=== PATIENT | male | born 1990 | race Caucasian/White ===

== ENCOUNTER 2022-06-20 20:29 | Emergency (ER) | payer SELFPAY ==
[~2022-06-20] VITALS: Ht 177 cm; Wt 95.0 kg
[2022-06-20 20:49] VITALS: BP 141/84
--- NOTE | 2022-06-20 20:57 | ED Upper Extremity ---
General Chief Complaint: Upper Extremity Stated Complaint: LEFT HAND INJURY Source: patient History of Present Illness Date Seen by Provider: Jun 20, 2022 Time Seen by Provider: 20:50 Initial Comments PT ARRIVES VIA POV FROM HOME STATES 35-40 MINUTES AGO, HE HIT HIS LEFT HAND WITH A HAMMER C/O PAIN TO DORSAL ASPECT OF LEFT HAND, OVER SECOND METACARPAL AREA NO PARESTHESIAS OR MOTOR DEFICITS NO OTHER INJURIES FROM THE INCIDENT PT IS RIGHT HANDED PT HAS HAD PRIOR BILATERAL BOXER'S FRACTURES OF 5TH METHCARPALS IN THE PAST--NO SURGERIES. 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 HAS NOT TAKEN ANYTHING FOR PAIN PCP: NONE Allergies and Home Medications Allergies Coded Allergies: No Known Drug Allergies (Unverified , 06/23/22) Patient Home Medication List Home Medication List Reviewed: Yes Escitalopram Oxalate (Escitalopram Oxalate) 10 Mg Tablet, 10 MG PO DAILY, (Reported) Entered as Reported by: CORBY KELLEY on 06/24/22 0951 Hyoscyamine Sulfate (Levsin-Sl) 0.125 Mg Tab.subl, 0.125 MG SL Q4H Prescribed by: AKANKSHA MERIDA on 06/25/22 1219 Lorazepam (Ativan) 0.5 Mg Tablet, 0.5 MG PO TID PRN for ANXIETY Prescribed by: VANESSA VALDES on 06/24/22 1152 Lorazepam (Ativan) 0.5 Mg Tablet, 0.5 MG PO Q6H PRN for ANXIETY Prescribed by: AKANKSHA MERIDA on 06/25/22 1219 Multivitamin (Multivitamin) 1 Each Tablet, 1 EACH PO DAILY Prescribed by: VANESSA VALDES on 06/24/22 1153 Oxycodone Hcl (Oxyir Tablet) 5 Mg Tab, 5 MG PO TID Prescribed by: VANESSA VALDES on 06/24/22 1152 Pantoprazole Sodium (Protonix) 40 Mg Tablet.dr, 40 MG PO BID Prescribed by: VANESSA VALDES on 06/24/22 115 Sucralfate (Carafate) 1 Gram Tablet, 1 GM PO Q6H Prescribed by: AKANKSHA MERIDA on 06/25/22 1219 Thiamine HCl (Vitamin B-1) 100 Mg Tablet, 100 MG PO DAILY Prescribed by: VANESSA VALDES on 06/24/22 1153 Discontinued Medications Acetaminophen (Tylenol Extra Strength) 500 Mg Tablet, 1,000-1,500 MG PO Q8H PRN for PAIN-MILD (1-4), (Reported) Entered as Reported by: CORBY KELLEY on 06/24/22950 Clonazepam (Clonazepam) 0.5 Mg Tablet, 0.5 MG PO DAILY PRN for ANXIETY, (Reported) Entered as Reported by: CORBY KELLEY on 06/24/22950 Ibuprofen (Ibuprofen) 200 Mg Tablet, 800 MG PO Q8H PRN for PAIN-MILD (1-4), (Reported) Entered as Reported by: CORBY KELLEY on 06/24/22950 Review of Systems Constitutional: no symptoms reported Musculoskeletal: see HPI Skin: no symptoms reported Psychiatric/Neurological: No Symptoms Reported Past Rxcgtyn-Gvrwbl-Advzfz Hx Patient Social History Tobacco Use?: Yes Tobacco type used: Cigarettes Smoking Status: Current Everyday Smoker Smokeless Tobacco Frequency: Current Everyday User Substance use?: No Alcohol Use?: Yes Past Medical History Surgeries: No Respiratory: No Cardiac: No Neurological: No Genitourinary: No Gastrointestinal: No Musculoskeletal: Yes (BILAT 5TH METACARPAL FRACTURES-NO SURGERY) Fractures Endocrine: No HEENT: No Cancer: No Psychosocial: No Integumentary: No Blood Disorders: No Physical Exam Vital Signs Capillary Refill : Height, Weight, BMI Height: '" Weight: lbs. oz. kg; BMI Method: General Appearance: WD/WN, no apparent distress, other (REEKS OF CIGARETTES) Elbow/Forearm: normal inspection Wrist: Yes normal inspection Hand: Left (DORSAL ASPECT OF LEFT HAND OVER SECOND METACARPAL AREA, WITH TENDERNESS AND SLIGHT SWELLING. LIMITED ROM DUE TO PAIN, DISTAL MOTOR/SENSORY/VASCULAR INTACT. 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 RISKS/BENEFITS DISCUSSED Diagnostic Imaging Comments XRAYS LEFT HAND--PER RADIOLOGIST REPORT AT Reviewed: Reviewed by Me Departure Impression Primary Impression: Left against medical advice Disposition: 07 AGAINST MEDICAL ADVICE Condition: Against Medical Advice Departure-Patient Inst. Referrals: NO,LOCAL PHYSICIAN (PCP/Family) Primary Care Physician HORTENSIA RODRIGUEZ DO Jun 20, 2022 20:57
--- NOTE | 2022-06-20 21:44 | Diagnostic Imaging Report ---
CLINICAL INDICATION: Patient was building a cage for a pet snake and hit his hand with a hammer. EXAM: X-ray of the left hand, 3 views. COMPARISON: None. FINDINGS AND IMPRESSION: 1: There is a chronic appearing mid scaphoid bone fracture with sclerosis in the region. 2: There is no acute fracture or dislocation seen on this exam. 3: There is soft tissue swelling involving the 2nd digit but no gross fracture seen. 4: The remainder of this exam is unremarkable. Dictated by: Dictated on workstation # [id number]
[2022-06-24] MEDS ORDERED: PANT40TA2 PO (11:52)
[2022-06-24] MEDS ORDERED: OXC5T PO (11:52)
[2022-06-24] MEDS ORDERED: LORA-404 PO (11:52)
[2022-06-24] MEDS ORDERED: MULT-1136 PO (11:53)
[2022-06-24] MEDS ORDERED: THIA100T80 PO (11:53)
== END 2022-06-20 21:23 | disposition left against medical advice (07) ==
LOC: ER 20:32
DX: M79.642 Pain in left hand (principal); M79.89 Other specified soft tissue disorders; F17.210 Nicotine dependence, cigarettes, uncomplicated; W27.8XXA Contact with other nonpowered hand tool, initial encounter
CPT/HCPCS: 73130

== ENCOUNTER 2022-06-23 17:41 | Observation (INO) | payer SELFPAY ==
[~2022-06-23] VITALS: Ht 177.8 cm; Wt 96.4 kg
[2022-06-23] MEDS ORDERED: ONDANSETRON 4 MG/2 ML (SDV) Z0FRAN IVP ONE (18:30)
[2022-06-23] MEDS ORDERED: PANTOPRAZOLE 40 MG (PROTONIX) VIAL IV ONE (18:30)
[2022-06-23 18:38] LABS: BASOPHILS # (AUTO) 0.1 10^3/uL (0.0-0.1); BASOPHILS % (AUTO) 1 % (0-10); EOSINOPHILS # (AUTO) 0.3 10^3/uL (0.0-0.3); EOSINOPHILS % (AUTO) 4 % (0-10); HEMATOCRIT 49 % (40-54); HEMOGLOBIN 16.8 g/dL (13.3-17.7); LYMPHOCYTES # (AUTO) 2.7 10^3/uL (1.0-4.0); LYMPHOCYTES % (AUTO) 34 % (12-44); MEAN CORPUSCULAR HEMOGLOBIN 31 pg (25-34); MEAN CORPUSCULAR HGB CONC 34 g/dL (32-36); MEAN CORPUSCULAR VOLUME 90 fL (80-99); MEAN PLATELET VOLUME 8.8 fL (9.0-12.2); MONOCYTES # (AUTO) 0.5 10^3/uL (0.0-1.0); MONOCYTES % (AUTO) 6 % (0-12); NEUTROPHILS # (AUTO) 4.3 10^3/uL (1.8-7.8); NEUTROPHILS % (AUTO) 54 % (42-75); PLATELET COUNT 303 10^3/uL (130-400); WHITE BLOOD COUNT 7.9 10^3/uL (4.3-11.0)
[2022-06-23] MEDS ORDERED: morphine INJ 10 MG/ML 1ML (SYR OR VIAL) IVP STA ×3 (18:42→21:34)
[2022-06-23 18:44] LABS: PROTHROMBIN TIME PATIENT 13.1 SEC (12.2-14.7)
[2022-06-23] MEDS ORDERED: LORazepam INJ 2 MG/ML (ATIVAN) VIAL IVP ONE (18:45)
[2022-06-23 18:53] LABS: ALBUMIN 4.4 GM/DL (3.2-4.5); BILIRUBIN,TOTAL 0.6 MG/DL (0.1-1.0); CREATININE SERUM 0.88 MG/DL (0.60-1.30); POTASSIUM 4.1 MMOL/L (3.6-5.0); TOTAL PROTEIN 7.6 GM/DL (6.4-8.2)
[2022-06-23] MEDS ORDERED: LORazepam 1 MG (ATIVAN) TAB BC ONE (19:15)
[2022-06-23] MEDS ORDERED: IOHEXOL 350 MG/ML 100 ML (OMNIPAQUE 350) VIAL IV ONE (19:15)
[2022-06-23] MEDS ORDERED: HOLD METFORMIN - RECEIVED CONTRAST 20 ML VIAL IV SCH (19:15)
[2022-06-23] MEDS ORDERED: NS 100 ML (IVPB) BAG IV ONE (19:15)
[2022-06-23] MEDS ORDERED: CATHETER FLUSH 10 ML SYR IV PRN (19:15)
--- NOTE | 2022-06-23 19:59 | Diagnostic Imaging Report ---
CLINICAL INDICATION: Patient with GI bleed. EXAM: Axial CT scan of the chest, abdomen and pelvis performed with Omnipaque IV contrast. Sagittal and coronal reformatted images were created. Auto Exposure Controls were utilized during the CT exam to meet ALARA standards for radiation dose reduction. COMPARISON: None. FINDINGS: CHEST CT: There is paraseptal emphysematous changes involving both lung apices. Otherwise, lungs are clear. There is no mediastinal or hilar lymphadenopathy. There is no axillary lymphadenopathy. Mediastinal structures are unremarkable. There is no pleural effusion. ABDOMEN/PELVIS CT: There is diffuse low-density seen throughout the liver. The liver measures 22 cm in craniocaudal dimension. There is no liver mass. There is some fatty sparing involving the gallbladder fossa region of the liver. The spleen, pancreas, gallbladder and adrenal glands are unremarkable. Both kidneys are unremarkable with no hydronephrosis, stone or mass. Bladder is decompressed but otherwise unremarkable. There is no intra-abdominal free air or free fluid. Appendix is unremarkable. The stomach is decompressed with wall thickening which is nonspecific. The colon and small bowel show no significant abnormality. There is no intestinal obstruction. There is no lymphadenopathy. Extra abdominal and extra pelvic soft tissue structures are unremarkable. Bones show no significant abnormality. IMPRESSION: 1: There is no CT evidence of acute chest, abdominal or pelvic process. 2: There is hepatomegaly and diffuse low-density seen throughout the liver which is most likely related to diffuse fatty infiltration. 3: There is no intestinal obstruction or significant intestinal abnormality seen on this exam. Dictated by: Dictated on workstation # [id number]
[2022-06-23] MEDS ORDERED: ANTACID SUSP 30 ML UDC (MYLANTA) PO ONE (21:15)
[2022-06-23] MEDS ORDERED: LIDOCAINE 2% VISCOUS 15 ML UDC PO ONE (21:15)
--- NOTE | 2022-06-23 21:43 | ED Abdominal Pain ---
General Chief Complaint: Abdominal/GI Problems Stated Complaint: VOMITING BLOOD Nursing Triage Note: PT AMB TO RM 7 W C/O VOMITING BLOOD AND BLOODY STOOLS FOR SEVERAL MONTHS. PT ALSO C/O NEW ONSET ABD PAIN AND CP SX 1700 TODAY. PT A&OX4, REPORTS HE DRINKS LIQUOR DAILY - LAST DRINK THIS AM. Source of Information: Patient Exam Limitations: No Limitations History of Present Illness Date Seen by Provider: Jun 23, 2022 Time Seen by Provider: 18:30 Initial Comments This 32-year-old gentleman presents to the emergency room with complaints of upper abdominal pain, hematemesis, and hematochezia over the past few days. He presented to his PCP at the [facility] clinic. Labs were performed and they reported elevated transaminases. He presents to the ER for further evaluation and treatment. His last alcohol consumption was a few shots of hard alcohol at 0600. He normally drinks about a pint of hard alcohol daily. He travels for work and has a fianc who is due to have a baby girl in about a week. Increased stress has increased his alcohol consumption, but he would like to get control of this problem as his baby should be born soon. He is open to doing outpatient treatment. He reports having endoscopy previously about 2 years ago. He states he has a history of "ulcers and tear of the esophagus". He does not remember exactly where the endoscopies were performed. They may have been performed in [place], [facility], or . His fiance shows me multiple pictures on the phone of numerous episodes of hematemesis and hematochezia. Vital signs are stable at this time. Patient is obviously uncomfortable. He is alert and oriented. Allergies and Home Medications Allergies Coded Allergies: No Known Drug Allergies (Unverified , 06/23/22) Patient Home Medication List Home Medication List Reviewed: Yes Review of Systems Review of Systems Constitutional: no symptoms reported EENTM: No Symptoms Reported Respiratory: No Symptoms Reported Cardiovascular: No Symptoms Reported Gastrointestinal: See HPI Genitourinary: No Symptoms Reported Musculoskeletal: no symptoms reported Skin: no symptoms reported Psychiatric/Neurological: See HPI Endocrine: No Symptoms Reported Hematologic/Lymphatic: No Symptoms Reported Past Cvgnuqd-Mxisyd-Iwmltb Hx Patient Social History Tobacco Use?: No Use of E-Cig and/or Vaping dev: Yes E-Cig or Vaping type used: Nicotine Use of E-Cig and/or Vaping Cezar: Current Everyday User Substance use?: No Alcohol Use?: Yes Alcohol type: Hard Liquor Alcohol Frequency: Daily Immunizations Up To Date First/Initial COVID19 Vaccinat: NONE Second COVID19 Vaccination James: NONE Third COVID19 Vaccination Date: NONE COVID19 Vaccine Oil Program Compliance Specialist: NONE Past Medical History Surgeries: Yes Abdominal (Upper and lower endoscopy), Orthopedic (Calcaneal fracture, hip to wrist bone graft) Respiratory: No Cardiac: No Neurological: No Genitourinary: No Gastrointestinal: Yes ("Tear of esophagus") Ulcer Musculoskeletal: Yes (BILAT 5TH METACARPAL FRACTURES-NO SURGERY) Fractures Endocrine: No HEENT: No Cancer: No Psychosocial: Yes Anxiety, Depression Integumentary: No Blood Disorders: No Physical Exam Vital Signs Vital Signs - First Documented 06/23/22 18:00 Temp 36.6 Pulse 84 Resp 20 B/P (MAP) 144/94 (111) Pulse Ox 97 O2 Delivery Room Air Capillary Refill : Less Than 3 Seconds Height/Weight/BMI Height: '" Weight: lbs. oz. 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, no motor/sensory deficits, alert, oriented x 3, other (Mildly anxious) Skin: normal color, warm/dry Progress/Results/Core Measures Results/Orders Lab Results Laboratory Tests Test 06/23/22 18:10 Range/Units White Blood Count 7.9 4.3-11.0 10^3/uL Red Blood Count 5.46 4.30-5.52 10^6/uL Hemoglobin 16.8 13.3-17.7 g/dL Hematocrit 49 40-54 % Mean Corpuscular Volume 90 80-99 fL Mean Corpuscular Hemoglobin 31 25-34 pg Mean Corpuscular Hemoglobin Concent 34 32-36 g/dL Red Cell Distribution Width 13.6 10.0-14.5 % Platelet Count 303 130-400 10^3/uL Mean Platelet Volume 8.8 L 9.0-12.2 fL Immature Granulocyte % (Auto) 0 % Neutrophils (%) (Auto) 54 42-75 % Lymphocytes (%) (Auto) 34 12-44 % Monocytes (%) (Auto) 6 0-12 % Eosinophils (%) (Auto) 4 0-10 % Basophils (%) (Auto) 1 0-10 % Neutrophils # (Auto) 4.3 1.8-7.8 10^3/uL Lymphocytes # (Auto) 2.7 1.0-4.0 10^3/uL Monocytes # (Auto) 0.5 0.0-1.0 10^3/uL Eosinophils # (Auto) 0.3 0.0-0.3 10^3/uL Basophils # (Auto) 0.1 0.0-0.1 10^3/uL Immature Granulocyte # (Auto) 0.0 0.0-0.1 10^3/uL Prothrombin Time 13.1 12.2-14.7 SEC INR Comment 1.0 0.8-1.4 Sodium Level 141 135-145 MMOL/L Potassium Level 4.1 3.6-5.0 MMOL/L Chloride Level 107 98-107 MMOL/L Carbon Dioxide Level 24 21-32 MMOL/L Anion Gap 10 5-14 MMOL/L Blood Urea Nitrogen 10 7-18 MG/DL Creatinine 0.88 0.60-1.30 MG/DL Estimat Glomerular Filtration Rate 118 BUN/Creatinine Ratio 11 Glucose Level 80 70-105 MG/DL Calcium Level 9.0 8.5-10.1 MG/DL Corrected Calcium 8.7 8.5-10.1 MG/DL Magnesium Level 2.0 1.6-2.4 MG/DL Total Bilirubin 0.6 0.1-1.0 MG/DL Aspartate Amino Transf (AST/SGOT) 64 H 5-34 U/L Alanine Aminotransferase (ALT/SGPT) 173 H 0-55 U/L Alkaline Phosphatase 88 40-136 U/L Total Protein 7.6 6.4-8.2 GM/DL Albumin 4.4 3.2-4.5 GM/DL Lipase 10 8-78 U/L Serum Alcohol 73 H <10 MG/DL My Orders Orders - PITER PITTMAN MD Pantoprazole Injection (Protonix Injecti (06/23/22 18:30) Ondansetron Injection (Zofran Injectio (06/23/22 18:30) Ed Iv/Invasive Line Start (06/23/22 18:31) Monitor-Rhythm Ecg Trace Only (06/23/22 18:31) Alcohol (06/23/22 18:31) Cbc With Automated Diff (06/23/22 18:31) Comprehensive Metabolic Panel (06/23/22 18:31) Lipase (06/23/22 18:31) Magnesium (06/23/22 18:31) Protime With Inr (06/23/22 18:31) Morphine Injection (Morphine Injection (06/23/22 18:42) Ct Chest/Abdomen/Pelvis W (06/23/22 19:01) Lorazepam Tablet (Ativan Tablet) (06/23/22 19:15) Iohexol Injection (Omnipaque 350 Mg/Ml 1 (06/23/22 19:15) Received Contrast (Hold Metformin- Contr (06/23/22 19:15) Ns (Ivpb) (Sodium Chloride 0.9% Ivpb Bag (06/23/22 19:15) Sodium Chloride Flush (Catheter Flush Sy (06/23/22 19:15) Morphine Injection (Morphine Injection (06/23/22 19:54) Lidocaine 2% Viscous 15 Ml (Xylocaine Vi (06/23/22 21:15) Antacid Suspension (Mylanta Suspension (06/23/22 21:15) Morphine Injection (Morphine Injection (06/23/22 21:34) Ed Admission (Communication) (06/23/22 21:43) Medications Given in ED Current Medications Medications Dose Ordered Sig/Hayes Route Start Time Stop Time Status Last Admin Dose Admin Al Hydrox/Mg Hydrox/Simethicone 30 ml ONCE ONCE PO 06/23/22 21:15 06/23/22 21:16 DC 06/23/22 21:08 30 ML Iohexol 100 ml ONCE ONCE IV 06/23/22 19:15 06/23/22 21:27 DC 06/23/22 19:39 80 ML Lidocaine HCl 15 ml ONCE ONCE PO 06/23/22 21:15 06/23/22 21:16 DC 06/23/22 21:08 15 ML Lorazepam 2 mg ONCE ONCE BC 06/23/22 19:15 06/23/22 19:16 DC 06/23/22 19:42 2 MG Ondansetron HCl 8 mg ONCE ONCE IVP 06/23/22 18:30 06/23/22 18:31 DC 06/23/22 19:09 8 MG Pantoprazole 80 mg ONCE ONCE IV 06/23/22 18:30 06/23/22 18:31 DC 06/23/22 19:09 80 MG Sodium Chloride 10 ml NEEDED PRN IV 06/23/22 19:15 06/23/22 19:37 10 ML Sodium Chloride 100 ml ONCE ONCE IV 06/23/22 19:15 06/23/22 21:27 DC 06/23/22 19:39 80 ML Vital Signs/I&O 06/23/22 18:00 Temp 36.6 Pulse 84 Resp 20 B/P (MAP) 144/94 (111) Pulse Ox 97 O2 Delivery Room Air Blood Pressure Mean: 111 Fecal Occult: Negative Progress Progress Note : Time: 21:52 Progress Note Work-up was relatively unremarkable. Patient was treated with fentanyl and morphine for pain. Pain did not improve much with IV treatments. GI cocktail was administered which also did not improve pain much. CT of the chest, abdomen and pelvis was obtained. Chest was included because of his history of esophageal injury by his report. No acute findings were revealed. Hepatomegaly was present, likely secondary to his alcohol dependence. Patient had no active bleeding in the ER. Stool specimen was Hemoccult negative. Patient is offered admission for pain control and social security benefits interviewer consult as well as establishment with a surgeon for endoscopy. Dr. Castillo is agreeable to admission. Dr. Graham was consulted and requested clear liquid diet and continued PPI. Protonix 80 mg IV was administered in the ER along with Zofran. Ativan 2 mg orally was administered. Diagnostic Imaging Diagonstic Imaging: CT Plain Films/CT/US/NM/MRI: chest, abdomen, pelvis Comments CT scan viewed by me and report reviewed. See report below: NAME: ELSY KINSE[facility] REC#: [id number] PT STATUS: REG ER : 1990 PHYSICIAN: PITER PITTMAN MD ADMIT DATE: 06/23/22/ER Draft Date of Exam:06/23/22 CT CHEST/ABDOMEN/PELVIS W CLINICAL INDICATION: Patient with GI bleed. EXAM: Axial CT scan of the chest, abdomen and pelvis performed with Omnipaque IV contrast. Sagittal and coronal reformatted images were created. Auto Exposure Controls were utilized during the CT exam to meet ALARA standards for radiation dose reduction. COMPARISON: None. FINDINGS: CHEST CT: There is paraseptal emphysematous changes involving both lung apices. Otherwise, lungs are clear. There is no mediastinal or hilar lymphadenopathy. There is no axillary lymphadenopathy. Mediastinal structures are unremarkable. There is no pleural effusion. ABDOMEN/PELVIS CT: There is diffuse low-density seen throughout the liver. The liver measures 22 cm in craniocaudal dimension. There is no liver mass. There is some fatty sparing involving the gallbladder fossa region of the liver. The spleen, pancreas, gallbladder and adrenal glands are unremarkable. Both kidneys are unremarkable with no hydronephrosis, stone or mass. Bladder is decompressed but otherwise unremarkable. There is no intra-abdominal free air or free fluid. Appendix is unremarkable. The stomach is decompressed with wall thickening which is nonspecific. The colon and small bowel show no significant abnormality. There is no intestinal obstruction. There is no lymphadenopathy. Extra abdominal and extra pelvic soft tissue structures are unremarkable. Bones show no significant abnormality. IMPRESSION: 1: There is no CT evidence of acute chest, abdominal or pelvic process. 2: There is hepatomegaly and diffuse low-density seen throughout the liver which is most likely related to diffuse fatty infiltration. 3: There is no intestinal obstruction or significant intestinal abnormality seen on this exam. Dictated on workstation # [id number] Dict: 06/23/221949 Trans: 06/23/221957 [facility] [id number] Interpreted by: SELMA SALINAS MD Departure Communication (Admissions) Time/Spoke to Admitting Phy: 21:40 Dr. Castillo Impression Primary Impression: Hematemesis Qualified Codes: K92.0 - Hematemesis Additional Impressions: Hematochezia Upper abdominal pain Alcohol dependence Qualified Codes: F10.288 - Alcohol dependence with other alcohol-induced disorder Disposition: ADMITTED INPATIENT Condition: Stable Admissions Decision to Admit Reason: Admit from ER (General) Decision to Admit/Date: Jun 23, 2022 Time/Decision to Admit Time: 21:40 Departure-Patient Inst. Referrals: NO,LOCAL PHYSICIAN (PCP/Family) Primary Care Physician Copy Copies To 1: [facility][1]/PITER FRAUSTO MD Jun 23, 2022 21:43
[2022-06-23] MEDS ORDERED: diphenhydrAMINE 50 MG/ML INJ (BENADRYL) IVP PRN (22:45)
[2022-06-23] MEDS ORDERED: ONDANSETRON 4 MG (ZOFRAN) ORAL DISSOLVE TAB SL PRN (22:45)
[2022-06-23] MEDS ORDERED: ACETAMINOPHEN 325 MG TABLET PO PRN (22:45)
[2022-06-23] MEDS ORDERED: diphenhydrAMINE 25 MG TAB (BENADRYL) PO PRN (22:45)
[2022-06-23] MEDS ORDERED: SENNA W/DOCUSATE (SENOKOT S) TABLET PO PRN (22:45)
[2022-06-23] MEDS ORDERED: polyethylene glycoL POWDER 17 GM (MIRALAX) PACK PO PRN (22:45)
[2022-06-23] MEDS ORDERED: BISACODYL 10 MG SUPP (DULCOLAX) PR PRN (22:45)
[2022-06-23] MEDS ORDERED: ONDANSETRON 4 MG (ZOFRAN) ORAL DISSOLVE TAB PO PRN (22:45)
[2022-06-23] MEDS ORDERED: D5 1/2 NS 1000 ML IV SOLUTION 1,000 ML IV PRN (22:45)
[2022-06-23] MEDS ORDERED: NS IV 500 ML 500 ML IV PRN (22:45)
[2022-06-23] MEDS ORDERED: 1/2 NS IV SOLUTION 1,000 ML IV PRN (22:45)
[2022-06-23] MEDS ORDERED: MELATONIN 3 MG TABLET PO PRN (22:45)
[2022-06-23] MEDS ORDERED: ONDANSETRON 4 MG/2 ML (SDV) Z0FRAN IV PRN ×2 (22:45)
[2022-06-23] MEDS ORDERED: HYDROmorphone 2 MG/ML VIAL (DILAUDID) IV PRN (22:45)
[2022-06-23] MEDS ORDERED: ANTACID SUSP 30 ML UDC (MYLANTA) PO PRN ×2 (22:45)
[2022-06-23] MEDS ORDERED: MILK OF MAGNESIA 400 MG/5 ML 30 ML UDC PO PRN (22:45)
[2022-06-23] MEDS ORDERED: CALCIUM CARBONATE 500 MG (TUMS) TAB.CHEW PO PRN (22:45)
[2022-06-23] MEDS ORDERED: cloNIDine 0.1 MG (CATAPRES) TAB PO PRN (22:45)
[2022-06-23] MEDS ORDERED: LACTULOSE SYRUP 10GM/15ML (ENULOSE) 30ML UDC PO PRN (22:45)
[2022-06-23 22:54] VITALS: BP 144/94
[2022-06-23 22:55] VITALS: BP 118/91
[2022-06-23 23:00] VITALS: BP 122/98
[2022-06-23] MEDS ORDERED: RT-ALBUTEROL SULF 2.5 MG/3 ML PRE-MIX VIAL INH PRN (23:00)
[2022-06-23 23:15] VITALS: BP 135/106
[2022-06-23 23:38] VITALS: BP 152/98
[2022-06-23 23:45] VITALS: BP 156/96
[2022-06-24] VITALS (7 sets, daily range): BP systolic 133–161; BP diastolic 75–95
[2022-06-24] MEDS: NS IV 1000 ML 1,000 ML IV SCH ×3 (00:19→15:02)
[2022-06-24] MEDS: LORazepam 1 MG (ATIVAN) TAB PO PRN ×8 (00:22→13:29)
[2022-06-24] MEDS: morphine IMMEDIATE RELEASE 15 MG TABLET PO PRN ×3 (01:49→10:18)
[2022-06-24] MEDS ORDERED: MAGNESIUM 1 GM/100 ML IVPB 100 ML IV SCH (06:00)
[2022-06-24] MEDS ORDERED: KCL 20 MEQ TAB (K-DUR) PO SCH (06:00)
[2022-06-24] MEDS ORDERED: POTASSIUM CL 10MEQ/50ML IVPB 50 ML IV SCH (06:00)
[2022-06-24 06:42] LABS: BASOPHILS # (AUTO) 0.1 10^3/uL (0.0-0.1); BASOPHILS % (AUTO) 1 % (0-10); EOSINOPHILS # (AUTO) 0.3 10^3/uL (0.0-0.3); EOSINOPHILS % (AUTO) 3 % (0-10); HEMATOCRIT 46 % (40-54); LYMPHOCYTES # (AUTO) 2.3 10^3/uL (1.0-4.0); LYMPHOCYTES % (AUTO) 22 % (12-44); MEAN CORPUSCULAR HEMOGLOBIN 31 pg (25-34); MEAN CORPUSCULAR HGB CONC 35 g/dL (32-36); MEAN CORPUSCULAR VOLUME 91 fL (80-99); MEAN PLATELET VOLUME 8.7 fL (9.0-12.2); MONOCYTES # (AUTO) 0.7 10^3/uL (0.0-1.0); MONOCYTES % (AUTO) 7 % (0-12); NEUTROPHILS # (AUTO) 7.1 10^3/uL (1.8-7.8); NEUTROPHILS % (AUTO) 67 % (42-75); PLATELET COUNT 274 10^3/uL (130-400); WHITE BLOOD COUNT 10.5 10^3/uL (4.3-11.0)
[2022-06-24] MEDS ORDERED: THIAMINE 100 MG (VITAMIN B-1) TAB PO SCH (07:00)
[2022-06-24] MEDS ORDERED: MULTIVIT W/MINERALS TAB (THERAGRAN M) PO SCH (07:00)
[2022-06-24 07:01] LABS: ALBUMIN 4.5 GM/DL (3.2-4.5); POTASSIUM 3.9 MMOL/L (3.6-5.0)
[2022-06-24 07:03] LABS: CALCIUM 8.9 MG/DL (8.5-10.1)
[2022-06-24 07:04] LABS: TOTAL PROTEIN 7.4 GM/DL (6.4-8.2)
[2022-06-24 07:05] LABS: BILIRUBIN,TOTAL 0.7 MG/DL (0.1-1.0)
[2022-06-24 07:07] LABS: CREATININE SERUM 1.09 MG/DL (0.60-1.30); PHOSPHORUS 3.2 MG/DL (2.3-4.7)
[2022-06-24] MEDS ORDERED: SENNOSIDES 8.6 MG (SENOKOT) TAB PO SCH (09:00)
[2022-06-24] MEDS ORDERED: MAGNESIUM OXIDE (MAG-OX)400 MG TAB PO SCH (09:00)
[2022-06-24] MEDS ORDERED: DOCUSATE SODIUM 100 MG (COLACE) CAP PO SCH (09:00)
[2022-06-24] MEDS ORDERED: PANTOPRAZOLE 40 MG (PROTONIX) VIAL IV SCH (09:00)
[2022-06-24] MEDS ORDERED: FOLIC ACID 1 MG TAB PO SCH (09:00)
[2022-06-24] MEDS ORDERED: THIAMINE INJECTION 100 MG, FOLIC ACID INJECTION 1 MG, MAGNESIUM SULFATE 2 GM, VITAMIN M... IV SCH ×5 (09:00)
[2022-06-24] MEDS ORDERED: ACET-2267 PO (09:51)
[2022-06-24] MEDS ORDERED: ESCI-2 PO (09:51)
[2022-06-24] MEDS ORDERED: CLON0.5T4 PO (09:51)
[2022-06-24] MEDS ORDERED: IBUP-2473 PO (09:51)
[2022-06-24] MEDS ORDERED: PANT40TA2 PO (11:52)
[2022-06-24] MEDS ORDERED: OXC5T PO (11:52)
[2022-06-24] MEDS ORDERED: LORA-404 PO (11:52)
[2022-06-24] MEDS ORDERED: THIA100T80 PO (11:53)
[2022-06-24] MEDS ORDERED: MULT-1136 PO (11:53)
--- NOTE | 2022-06-24 13:22 | Short Stay Summary-Hospitalist ---
ESTHER HERRON 06/24/22 1322: History of Present Illness HPI/Chief Complaint Pt is a 32yo male with h/o alcohol abuse who arrived in ER last night due to having blood in both his vomit and stool for the past day. He said this has happened once before 2 years ago and he was told he had a tear in his esophagus. Patient states he stopped drinking for a year but recently started back up again. His is due to have a baby in 6 days. Patient was up and walking around the room this morning when i visited with him. He has c/o sharp/stabbing pain in his LUQ and it radiates down and laterally. He denies any sweats/chills or current nausea. Denies any light headedness or syncope. Source: patient Exam Limitations: no limitations Date Seen 06/24/22 Time Seen by a Provider: 09:30 Attending Physician Mayuri,Local Physician PCP Admitting Physician: María Valdes DO Attending Physician: María Valdes DO Referring Physician Date of Admission Jun 23, 2022 at 21:44 Home Medications & Allergies Home Medications Reviewed patient Home Medication Reconciliation performed by pharmacy medication reconciliations dealer support technician and/or nursing. Patients Allergies have been reviewed. Allergies Allergies Coded Allergies No Known Drug Allergies (Unverified06/23/22) Past Uibshfl-Dtutoj-Rszpqo Hx Patient Social History Tobacco Use?: Yes Tobacco type used: Cigarettes Smoking Status: Current Everyday Smoker Smokeless type used: Chew Smokeless Tobacco Frequency: Current Someday User Use of E-Cig and/or Vaping dev: Yes E-Cig or Vaping type used: Nicotine Use of E-Cig and/or Vaping Cezar: Current Everyday User Substance use?: No Alcohol Use?: Yes Alcohol type: Hard Liquor Additional alcohol type: RUM/TEQUILA/WHISKEY Alcohol Frequency: Daily Pt feels they are or have been: No Immunizations Up To Date First/Initial COVID19 Vaccinat: NONE Second COVID19 Vaccination James: NONE Tetanus Booster (TDap): Less Than 5 Years Hepatitis A: No Hepatitis B: No Current Status Advance Directives: No Communicates: Verbally Primary Language: Georgian Preferred Spoken Language: Georgian Is interpretation needed?: No Past Medical History Surgeries: Abdominal (Upper and lower endoscopy), Orthopedic (Calcaneal fracture, hip to wrist bone graft) Ulcer Fractures Anxiety, Depression Blood Disorders: No Review of Systems Constitutional: No chills, No diaphoresis EENTM: No blurred vision Gastrointestinal: abdominal pain (sharp pain LUQ radiates to LLQ), hematemesis, melena, nausea Physical Exam Physical Exam Vital Signs Vital Signs - First Documented 06/23/22 06/23/22 18:00 22:54 Temp 36.6 Pulse 84 Resp 20 B/P (MAP) 144/94 (111) Pulse Ox 97 O2 Delivery Room Air FiO2 21 Capillary Refill : Less Than 3 Seconds Height, Weight, BMI Height: '" Weight: lbs. oz. kg; 30.49 BMI Method: General Appearance: No Apparent Distress, WD/WN HEENT: PERRL/EOMI Neck: Normal Inspection, Supple Respiratory: Lungs Clear, Normal Breath Sounds, No Accessory Muscle Use, No Respiratory Distress Cardiovascular: Regular Rate, Rhythm, No Murmur Gastrointestinal: Normal Bowel Sounds, Soft, Tenderness (LUQ) Neurologic/Psychiatric: Alert, Oriented x3, Normal Mood/Affect Skin: Normal Color, Warm/Dry Lymphatic: No Adenopathy (anterior/posterior cervical) Results Results/Procedures Labs Laboratory Tests 06/23/22 18:10 06/24/22 06:21 Patient resulted labs reviewed. Short Stay Diagnosis Discharge Diagnosis-Short Stay Admission Diagnosis Hematemesis, Melena Final Discharge Diagnosis Hematemesis, melena Conclusion Plan Pt receiving IV fluids and has been given some pain medication. Hgb was normal, electrolytes are WNL as well Patient has h/o peptic ulcer and with his recent increase in alcohol use it seems likely he has another ulcer Patient was informed that if he wants this to improve, he will need to stop drinking. Prescription for protonix 40mg BID given Recommend he see Dr. Graham on an outpatient basis to have an EGD Clinical Quality Measures DVT/VTE Risk/Contraindication: Contraindications-Pharm: Other *list below* Other: MARÍA Vasquez DO 06/25/22 0537: History of Present Illness HPI/Chief Complaint CC: ETOHis related hematemesis HPI: This is a 32yoWM alcoholic who presented to the ER with melena and Hematemesis. Patient is now doing well and hgb is stable and spoke to Dr Graham and ready to DC on PPI. Source: patient Exam Limitations: no limitations Past Atcsjfy-Leyiin-Ogtjqx Hx Patient Social History Marrital Status: cohabiting Employed/Student: unemployed Alcohol Use?: Yes Alcohol Frequency: Daily Review of Systems Constitutional: see HPI Gastrointestinal: abdominal pain (sharp pain LUQ radiates to LLQ), hematemesis, loss of appetite, melena, nausea Physical Exam Physical Exam General Appearance: No Apparent Distress, WD/WN Eyes: Bilateral Eye Normal Inspection, Bilateral Eye PERRL HEENT: PERRL/EOMI, TMs Normal, Normal ENT Inspection, Pharynx Normal Neck: Full Range of Motion, Normal Inspection, Non Tender, Supple, Carotid Bruit Respiratory: Chest Non Tender, Lungs Clear, Normal Breath Sounds, No Accessory Muscle Use, No Respiratory Distress Cardiovascular: Regular Rate, Rhythm, No Edema, No Gallop, No JVD, No Murmur, Normal Peripheral Pulses Gastrointestinal: Normal Bowel Sounds, No Organomegaly, No Pulsatile Mass, Non Tender, Soft Back: Normal Inspection, No CVA Tenderness, No Vertebral Tenderness Extremity: Normal Capillary Refill, Normal Inspection, Normal Range of Motion, Non Tender, No Calf Tenderness, No Pedal Edema Neurologic/Psychiatric: Alert, Oriented x3, No Motor/Sensory Deficits, Normal Mood/Affect Skin: Normal Color, Warm/Dry Lymphatic: No Adenopathy Short Stay Diagnosis Discharge Diagnosis-Short Stay Admission Diagnosis Hematemesis Melena Final Discharge Diagnosis GIB Conclusion Plan DC Supervisory-Addendum Brief Supervisory Addendum Participated in pt care: history, MDM, physical, procedure, other Personally performed: exam, history, supervision of care E&M service: agree ESTHER HERRON Jun 24, 2022 13:22 MARÍA VALDES DO Jun 25, 2022 05:37
[2022-06-25] MEDS ORDERED: HYOS0.1283 SL (12:19)
[2022-06-25] MEDS ORDERED: SUCR1TAB36 PO (12:19)
[2022-06-25] MEDS ORDERED: LORA-404 PO (12:19)
[2022-06-27] MEDS ORDERED: MULTIVIT W/MINERALS TAB (THERAGRAN M) PO SCH (07:00)
[2022-06-27] MEDS ORDERED: THIAMINE 100 MG (VITAMIN B-1) TAB PO SCH (07:00)
[2022-06-27] MEDS ORDERED: FOLIC ACID 1 MG TAB PO SCH (09:00)
== END 2022-06-24 15:54 | disposition home or self-care (01) ==
LOC: EDUNIT# 17:41 → ER 17:42 → CSD 21:44
PROVIDERS: ADMIT Internal Medicine; ATTEND Internal Medicine
DX: K92.0 Hematemesis (principal); K92.1 Melena; F10.20 Alcohol dependence, uncomplicated; Y90.3 Blood alcohol level of 60-79 mg/100 ml; F17.210 Nicotine dependence, cigarettes, uncomplicated; F17.220 Nicotine dependence, chewing tobacco, uncomplicated; F17.290 Nicotine dependence, other tobacco product, uncomplicated; Z87.11 Personal history of peptic ulcer disease; Z28.310 Unvaccinated for COVID-19; Z28.9 Immunization not carried out for unspecified reason
CPT/HCPCS: 71260; 74177; 80053 ×2; 82274; 82947 ×2; 83690; 83735 ×2; 84100; 85025 ×2; 85610; 93041; 96366; 96374; 96375; 96376 ×2; 99284; G0378; G0480; 36415; 80320

== ENCOUNTER 2022-06-25 09:29 | Emergency (ER) | payer SELFPAY ==
[~2022-06-25] VITALS: Ht 177 cm; Wt 95.2 kg
[~2022-06-25 09:29] MED LIST: ACET-2267 PO; CLON0.5T4 PO; ESCI-2 PO; IBUP-2473 PO; LORA-404 PO; MULT-1136 PO; OXC5T PO; PANT40TA2 PO; THIA100T80 PO
--- NOTE | 2022-06-25 10:18 | ED General ---
General Chief Complaint: Abdominal/GI Problems Stated Complaint: VOMITING BLOOD - ABD PAIN Nursing Triage Note: PT PRESENTS TO ED VIA POV FROM HOME WITH COMPLAINTS OF ABDOMINAL PAIN AND BLOODY EMESIS. PT REPORTS HE WAS JUST DISCHARGED FROM ICU YESTERDAY FOR AN ENLARGED LIVER. Source of Information: Patient, Spouse Exam Limitations: No Limitations ([employer] MED STUDENT) History of Present Illness Date Seen by Provider: Jun 25, 2022 Time Seen by Provider: 10:11 Initial Comments Bud Murillo is a 32 yo male who presents to ED via POV from home for abdominal pain and vomiting blood. [facility] for similar sxs. Pt has hx of ETOH abuse with 1pint per day. Last drink was 06/22 and he feels as if he is withdrawing. Has ativan prescription, but did not take it because he wanted to save it until he "got really bad". He states he started vomiting blood this morning and developed severe abdominal pain that he rates a 9/10. He has now developed CP, SOA, weakness and fatigue as well. CP is sharp and stabbing, then becomes dull. Pt reports all of these sxs were present during hospitalization, but are more severe now. Pt has only been able to tolerate sips of water today. Last meal was last night. Has not had a BM since he was seen in ED on 06/23. He took oxycodone 5mg this morning as well as tylenol with no relief in abdominal pain. Pt denies fever, but admits to having cold sweats and BERMAN. He denies any dysuria, frequency, numbness, diarrhea, lesions or rashes. Will do EKG in light of chest pain and SOA. Will order fentanyl for pain control and zofran for nausea. Will give dose of ativan to help with ETOH withdrawal. Timing/Duration: 2-3 Days Associated Systoms: Chest Pain, Cough; No Headaches; Loss of Appetite, Nausea/Vomiting, Shortness of Air, Weakness ([employer] MED STUDENT) Allergies and Home Medications Allergies Coded Allergies: No Known Drug Allergies (Unverified , 06/23/22) Patient Home Medication List Home Medication List Reviewed: Yes (AKANKSHA MERIDA MD) Escitalopram Oxalate (Escitalopram Oxalate) 10 Mg Tablet, 10 MG PO DAILY, (Reported) Entered as Reported by: CORBY KELLEY on 06/24/22950 Hyoscyamine Sulfate (Levsin-Sl) 0.125 Mg Tab.subl, 0.125 MG SL Q4H Prescribed by: AKANKSHA MERIDA on 06/25/221218 Lorazepam (Ativan) 0.5 Mg Tablet, 0.5 MG PO TID PRN for ANXIETY Prescribed by: VANESSA VALDES on 06/24/22 115 Lorazepam (Ativan) 0.5 Mg Tablet, 0.5 MG PO Q6H PRN for ANXIETY Prescribed by: AKANKSHA MERIDA on 06/25/221218 Multivitamin (Multivitamin) 1 Each Tablet, 1 EACH PO DAILY Prescribed by: VANESSA VALDES on 06/24/22 115 Oxycodone Hcl (Oxyir Tablet) 5 Mg Tab, 5 MG PO TID Prescribed by: VANESSA VALDES on 06/24/22 115 Pantoprazole Sodium (Protonix) 40 Mg Tablet.dr, 40 MG PO BID Prescribed by: VANESSA VALDES on 06/24/22 115 Sucralfate (Carafate) 1 Gram Tablet, 1 GM PO Q6H Prescribed by: AKANKSHA MERIDA on 06/25/22 121 Thiamine HCl (Vitamin B-1) 100 Mg Tablet, 100 MG PO DAILY Prescribed by: VANESSA VALDES on 06/24/22 115 Discontinued Medications Acetaminophen (Tylenol Extra Strength) 500 Mg Tablet, 1,000-1,500 MG PO Q8H PRN for PAIN-MILD (1-4), (Reported) Entered as Reported by: CORBY KELLEY on 06/24/22950 Clonazepam (Clonazepam) 0.5 Mg Tablet, 0.5 MG PO DAILY PRN for ANXIETY, (Reported) Entered as Reported by: CORBY KELLEY on 06/24/22950 Ibuprofen (Ibuprofen) 200 Mg Tablet, 800 MG PO Q8H PRN for PAIN-MILD (1-4), (Reported) Entered as Reported by: CORBY KELLEY on 06/24/22950 Review of Systems Review of Systems Constitutional: chills; No fever; malaise, weakness EENTM: No blurred vision, No vision loss Respiratory: No cough; short of breath Cardiovascular: chest pain; No palpitations Gastrointestinal: abdominal pain; No diarrhea; hematemesis, nausea, vomiting Genitourinary: No dysuria, No frequency Musculoskeletal: No back pain, No muscle pain Skin: No lesions, No lumps, No rash Psychiatric/Neurological: Anxiety, Depressed Hematologic/Lymphatic: No Symptoms Reported Immunological/Allergic: no symptoms reported (ERIC [employer] STUDENT) Past Gunrzzs-Mtqgdz-Tviwpv Hx Patient Social History Tobacco Use?: No Substance use?: No Alcohol Use?: No Pt feels they are or have been: No ([employer] STUDENT) Immunizations Up To Date First/Initial COVID19 Vaccinat: NONE Second COVID19 Vaccination James: NONE Third COVID19 Vaccination Date: NONE (ERIC [employer] FLOWER) Past Medical History Surgery/Hospitalization HX: CALCANEUS SURGERY/SCAPHOID BONE GRAFT/EGD X2 Surgeries: Yes Abdominal, Orthopedic Respiratory: No Cardiac: No Neurological: No Genitourinary: No Gastrointestinal: Yes ("Tear of esophagus") Ulcer Musculoskeletal: Yes (BILAT 5TH METACARPAL FRACTURES-NO SURGERY) Fractures Endocrine: No HEENT: No Cancer: No Psychosocial: Yes Anxiety, Depression Integumentary: No Blood Disorders: No ([employer] STUDENT) Physical Exam Vital Signs Vital Signs - First Documented 06/25/22 09:53 Pulse 88 Resp 16 B/P (MAP) 166/87 (113) Pulse Ox 96 (AKANKSHA MERIDA MD) Vital Signs Capillary Refill : Less Than 3 Seconds ([employer] STUDENT) Height, Weight, BMI Height: '" Weight: lbs. oz. kg; 30.00 BMI Method: General Appearance: WD/WN, Anxious HEENT: PERRL/EOMI Neck: Full Range of Motion, Normal Inspection Respiratory: Chest Non Tender, Lungs Clear, Normal Breath Sounds Cardiovascular: Regular Rate, Rhythm, No Murmur Gastrointestinal: Abnormal Bowel Sounds (hypoactive bowel sounds), Distended, Guarding, Tenderness (diffuse) Back: Normal Inspection, No Vertebral Tenderness Extremity: Non Tender, No Pedal Edema Neurologic/Psychiatric: Alert, Oriented x3, Depressed Affect Skin: Normal Color, Warm/Dry Lymphatic: No Adenopathy ([employer]IC [employer] STUDENT) Progress/Results/Core Measures Suspected Sepsis SIRS Temperature: Pulse: 88 Respiratory Rate: 16 Laboratory Tests 06/25/22 09:48: White Blood Count 6.7 Blood Pressure 166 /87 Mean: 113 Laboratory Tests 06/25/22 09:48: Creatinine 0.97, Platelet Count 277, Total Bilirubin 0.7 (ERIC PHIPPS A MED STUDENT) Results/Orders Lab Results Laboratory Tests Test 06/25/22 09:48 Range/Units White Blood Count 6.7 4.3-11.0 10^3/uL Red Blood Count 4.86 4.30-5.52 10^6/uL Hemoglobin 15.0 13.3-17.7 g/dL Hematocrit 44 40-54 % Mean Corpuscular Volume 91 80-99 fL Mean Corpuscular Hemoglobin 31 25-34 pg Mean Corpuscular Hemoglobin Concent 34 32-36 g/dL Red Cell Distribution Width 13.3 10.0-14.5 % Platelet Count 277 130-400 10^3/uL Mean Platelet Volume 9.0 9.0-12.2 fL Immature Granulocyte % (Auto) 0 % Neutrophils (%) (Auto) 64 42-75 % Lymphocytes (%) (Auto) 23 12-44 % Monocytes (%) (Auto) 9 0-12 % Eosinophils (%) (Auto) 3 0-10 % Basophils (%) (Auto) 1 0-10 % Neutrophils # (Auto) 4.3 1.8-7.8 10^3/uL Lymphocytes # (Auto) 1.5 1.0-4.0 10^3/uL Monocytes # (Auto) 0.6 0.0-1.0 10^3/uL Eosinophils # (Auto) 0.2 0.0-0.3 10^3/uL Basophils # (Auto) 0.1 0.0-0.1 10^3/uL Immature Granulocyte # (Auto) 0.0 0.0-0.1 10^3/uL Sodium Level 140 135-145 MMOL/L Potassium Level 4.1 3.6-5.0 MMOL/L Chloride Level 105 98-107 MMOL/L Carbon Dioxide Level 23 21-32 MMOL/L Anion Gap 12 5-14 MMOL/L Blood Urea Nitrogen 12 7-18 MG/DL Creatinine 0.97 0.60-1.30 MG/DL Estimat Glomerular Filtration Rate 107 BUN/Creatinine Ratio 12 Glucose Level 102 70-105 MG/DL Calcium Level 9.2 8.5-10.1 MG/DL Corrected Calcium 9.0 8.5-10.1 MG/DL Total Bilirubin 0.7 0.1-1.0 MG/DL Aspartate Amino Transf (AST/SGOT) 57 H 5-34 U/L Alanine Aminotransferase (ALT/SGPT) 130 H 0-55 U/L Alkaline Phosphatase 75 40-136 U/L Total Protein 7.0 6.4-8.2 GM/DL Albumin 4.2 3.2-4.5 GM/DL Lipase 10 8-78 U/L (AKANKSHA MERIDA MD) My Orders Orders - AKANKSHA MERDIA MD Ekg Tracing (06/25/22 10:18) Ed Iv/Invasive Line Start (06/25/22 10:38) Cbc With Automated Diff (06/25/22 10:38) Comprehensive Metabolic Panel (06/25/22 10:38) Lipase (06/25/22 10:38) Lidocaine 2% Viscous 15 Ml (Xylocaine Vi (06/25/22 11:15) Antacid Suspension (Mylanta Suspension (06/25/22 11:15) Sucralfate Tablet (Carafate Tablet) (06/25/22 11:15) Lorazepam Tablet (Ativan Tablet) (06/25/22 11:04) Fentanyl Inj (Sublimaze Injection) (06/25/22 11:30) (AKANKSHA MERIDA MD) Medications Given in ED (AKANKSHA MERIDA MD) Vital Signs/I&O 06/25/22 06/25/22 09:53 12:34 Pulse 88 80 Resp 16 16 B/P (MAP) 166/87 (113) 152/74 Pulse Ox 96 98 (AKANKSHA MERIDA MD) Vital Signs/I&O Capillary Refill : Less Than 3 Seconds ([employer]IC [employer] A MED STUDENT) Blood Pressure Mean: 113 Progress Note : Time: 10:52 Progress Note CBC, CMP and lipase ordered and unremarkable. 1143: Fentanyl and GI cocktail given for abdominal pain. Will continue to monitor. (ERIC PH[employer] A MED STUDENT) Progress Note : Time: 12:20 Progress Note Patient seen and examined by me. 32yo alcoholic. VSS. no vomiting blood in the ER. Given pain meds for abdominal pain.. lab workup unremarkable. reassurance provided. He was asking for more oxycodone and more ativan for his "withdraw al". He is not having tremors or nausea at all. I gave him #8 more 0.5mg ativan. Levsin for pain and carafate. Advised him to follow up with [facility] for further medications and mental health care. (AKANKSHA MERIDA MD) Departure Impression Primary Impression: Hematemesis Qualified Codes: K92.0 - Hematemesis Additional Impressions: Alcohol dependence Qualified Codes: F10.29 - Alcohol dependence with unspecified alcohol- induced disorder Upper abdominal pain Disposition: HOME, SELF-CARE Condition: Stable Departure-Patient Inst. Decision time for Depature: 12:15 (AKANKSHA MERIDA MD) Referrals: [facility] [place] PHYSICIAN (PCP) Primary Care Physician Patient Instructions: Alcohol Use Disorder ED, Gastric Ulcer (DC) Add. Discharge Instructions: Drink plenty of fluids to stay well-hydrated. Take the acid reducers daily. Use your pain medication 1 every 6 hours as needed for abdominal pain. Please remember that oxycodone is addictive. Do not drive and take it. You should also be taking stool softeners daily while taking narcotic pain medicine. Use your Ativan only as necessary. Levsin is also an abdominal pain medicine. Take this as directed/needed. Follow up with [facility] for further medication management and mental health care. Please keep your follow-up appointment for your EGD and colonoscopy. Return to the emergency department for any new, concerning or emergent complaints Scripts Sucralfate (Carafate) 1 Gram Tablet 1 GM PO Q6H, #60 TAB Prov: AKANKSHA MERIDA MD 06/25/22 Lorazepam (Ativan) 0.5 Mg Tablet 0.5 MG PO Q6H PRN for ANXIETY, #8 TAB Prov: AKANKSHA MERIDA MD 06/25/22 Hyoscyamine Sulfate (Levsin-Sl) 0.125 Mg Tab.subl 0.125 MG SL Q4H, #10 TAB 0 Refills Prov: AKANKSHA MERIDA MD 06/25/22 Verification and Attestation of Medical Student E/M Service A medical student performed and documented this service in my presence. I reviewed and verified all information documented by the medical student and made modifications to such information, when appropriate. I personally performed the physical exam and medical decision making. Akanksha Merida, Jun 25, 2022,12:20 (AKANKSHA MERIDA MD) [employer] MED STUDENT Jun 25, 2022 10:18 AKANKSHA MERIDA MD Jun 25, 2022 12:21
[2022-06-25 10:48] LABS: BASOPHILS # (AUTO) 0.1 10^3/uL (0.0-0.1); BASOPHILS % (AUTO) 1 % (0-10); EOSINOPHILS # (AUTO) 0.2 10^3/uL (0.0-0.3); EOSINOPHILS % (AUTO) 3 % (0-10); HEMATOCRIT 44 % (40-54); LYMPHOCYTES # (AUTO) 1.5 10^3/uL (1.0-4.0); LYMPHOCYTES % (AUTO) 23 % (12-44); MEAN CORPUSCULAR HEMOGLOBIN 31 pg (25-34); MEAN CORPUSCULAR HGB CONC 34 g/dL (32-36); MEAN CORPUSCULAR VOLUME 91 fL (80-99); MONOCYTES # (AUTO) 0.6 10^3/uL (0.0-1.0); MONOCYTES % (AUTO) 9 % (0-12); NEUTROPHILS # (AUTO) 4.3 10^3/uL (1.8-7.8); NEUTROPHILS % (AUTO) 64 % (42-75); PLATELET COUNT 277 10^3/uL (130-400); WHITE BLOOD COUNT 6.7 10^3/uL (4.3-11.0)
[2022-06-25 10:54] LABS: ALBUMIN 4.2 GM/DL (3.2-4.5); POTASSIUM 4.1 MMOL/L (3.6-5.0)
[2022-06-25 10:55] LABS: CALCIUM 9.2 MG/DL (8.5-10.1)
[2022-06-25 10:58] LABS: BILIRUBIN,TOTAL 0.7 MG/DL (0.1-1.0)
[2022-06-25 11:00] LABS: CREATININE SERUM 0.97 MG/DL (0.60-1.30)
[2022-06-25] MEDS ORDERED: LORazepam 0.5 MG (ATIVAN) TABLET PO STA (11:04)
[2022-06-25] MEDS ORDERED: ANTACID SUSP 30 ML UDC (MYLANTA) PO ONE (11:15)
[2022-06-25] MEDS ORDERED: SUCRALFATE 1 GM (CARAFATE) TAB PO ONE (11:15)
[2022-06-25] MEDS ORDERED: LIDOCAINE 2% VISCOUS 15 ML UDC PO ONE (11:15)
[2022-06-25] MEDS ORDERED: fentaNYL INJ 100 MCG/2 ML AMP IVP ONE (11:30)
[2022-06-25] MEDS ORDERED: SUCR1TAB36 PO (12:19)
[2022-06-25] MEDS ORDERED: HYOS0.1283 SL (12:19)
[2022-06-25] MEDS ORDERED: LORA-404 PO (12:19)
[2022-06-25 12:34] VITALS: BP 152/74
== END 2022-06-25 12:32 | disposition home or self-care (01) ==
LOC: EDUNIT# 09:29 → ER 09:33
DX: K92.0 Hematemesis (principal); R10.84 Generalized abdominal pain; F10.20 Alcohol dependence, uncomplicated
CPT/HCPCS: 36415; 80053; 83690; 85025; 93005

== ENCOUNTER 2022-08-07 06:59 | Emergency (ER) | payer SELFPAY ==
[~2022-08-07] VITALS: Ht 172 cm; Wt 97.0 kg
[~2022-08-07 06:59] MED LIST changes: +HYOS0.1283 SL; +SUCR1TAB36 PO
[2022-08-07] MEDS ORDERED: LACTATED RINGERS 1,000 ML IV STA (07:19)
[2022-08-07] MEDS ORDERED: fentaNYL INJ 100 MCG/2 ML AMP IVP STA (07:19)
[2022-08-07] MEDS ORDERED: PANTOPRAZOLE 40 MG (PROTONIX) VIAL IV ONE (07:30)
[2022-08-07] MEDS ORDERED: ONDANSETRON 4 MG/2 ML (SDV) Z0FRAN IVP ONE (07:30)
[2022-08-07] MEDS ORDERED: FAMOTIDINE 20 MG (PEPCID) TABLET PO ONE (07:30)
[2022-08-07 07:31] LABS: BASOPHILS % (AUTO) 0 % (0-10); EOSINOPHILS # (AUTO) 0.2 10^3/uL (0.0-0.3); EOSINOPHILS % (AUTO) 2 % (0-10); HEMATOCRIT 46 % (40-54); HEMOGLOBIN 15.7 g/dL (13.3-17.7); LYMPHOCYTES # (AUTO) 1.1 10^3/uL (1.0-4.0); LYMPHOCYTES % (AUTO) 9 % (12-44); MEAN CORPUSCULAR HEMOGLOBIN 31 pg (25-34); MEAN CORPUSCULAR HGB CONC 34 g/dL (32-36); MEAN CORPUSCULAR VOLUME 92 fL (80-99); MEAN PLATELET VOLUME 8.7 fL (9.0-12.2); MONOCYTES # (AUTO) 0.5 10^3/uL (0.0-1.0); MONOCYTES % (AUTO) 4 % (0-12); NEUTROPHILS # (AUTO) 10.6 10^3/uL (1.8-7.8); NEUTROPHILS % (AUTO) 85 % (42-75); PLATELET COUNT 269 10^3/uL (130-400); WHITE BLOOD COUNT 12.4 10^3/uL (4.3-11.0)
[2022-08-07 07:43] LABS: ALBUMIN 4.4 GM/DL (3.2-4.5); POTASSIUM 3.8 MMOL/L (3.6-5.0)
[2022-08-07 07:45] LABS: CALCIUM 8.9 MG/DL (8.5-10.1)
[2022-08-07 07:46] LABS: TOTAL PROTEIN 7.7 GM/DL (6.4-8.2)
[2022-08-07 07:48] LABS: BILIRUBIN,TOTAL 0.4 MG/DL (0.1-1.0)
--- NOTE | 2022-08-07 07:49 | ED Abdominal Pain ---
General Chief Complaint: Abdominal/GI Problems Stated Complaint: ABD PAIN Nursing Triage Note: pt states having fatty liver disease, 17 days without drinking and started drinking last night, cc of abd pain, vomiting blood. while discussing issues states "I have anger issues" and "I feel immature." Source of Information: Patient Exam Limitations: No Limitations History of Present Illness Date Seen by Provider: Aug 07, 2022 Time Seen by Provider: 07:10 Initial Comments Here with concerns of upper abdominal pain and vomiting blood. States that he has been drinking alcohol and is currently working with [email or web address]. He has been seen a couple times including by us and another hospital in [place] due to the vomiting blood. He did have a short stay admission here for same and had stable hemoglobin. He was recommended outpatient follow-up at that time with Dr. Graham. He was prescribed omeprazole. Admits that he is not taking that. Does admit to drinking quite a bit of alcohol recently including last night which involved a pint of whiskey as well as 8 beers and a couple shooters. He is worried about his liver because he was told that he has stage III liver disease and fatty liver disease secondary to alcoholism. He is not currently vomiting right now. He came in drinking a bottle of strawberry milk. He was instructed to stop p.o. intake currently. Denies fever chills or other constitutional symptoms. Timing/Duration: Intermittent, Other (1-1/2 months but worse over the last 12 hours) Severity/Quality: Moderate, Severe Location: RUQ, Epigastric Radiation: No Radiation Activities at Onset: None Modifying Factors: Worsens With Eating Associated Symptoms: No Back Pain, No Chest Pain, No Fever/Chills; Nausea/Vomiting; No Shortness of Air, No Weakness Allergies and Home Medications Allergies Coded Allergies: No Known Drug Allergies (Unverified , 06/23/22) Patient Home Medication List Home Medication List Reviewed: Yes Clonazepam (Klonopin) 0.5 Mg Tablet, 0.5 MG PO BID, (Reported) Entered as Reported by: JORJE BLACKWELL on 08/07/22821 Last Action: New Order Escitalopram Oxalate (Escitalopram Oxalate) 10 Mg Tablet, 10 MG PO DAILY, (Reported) Entered as Reported by: CORBY KELLEY on 06/24/22 09 Escitalopram Oxalate (Lexapro) 10 Mg Tablet, 10 MG PO, (Reported) Entered as Reported by: JORJE BLACKWELL on 08/07/22821 Last Action: New Order Hyoscyamine Sulfate (Levsin-Sl) 0.125 Mg Tab.subl, 0.125 MG SL Q4H Prescribed by: AKANKSHA MERIDA on 06/25/221218 Multivitamin (Multivitamin) 1 Each Tablet, 1 EACH PO DAILY Prescribed by: VANESSA VALDES on 06/24/221152 Pantoprazole Sodium (Protonix) 40 Mg Tablet.dr, 40 MG PO BID Prescribed by: VANESSA VALDES on 06/24/221151 Sucralfate (Carafate) 1 Gram Tablet, 1 GM PO Q6H Prescribed by: AKANKSHA MERIDA on 06/25/221218 Thiamine HCl (Vitamin B-1) 100 Mg Tablet, 100 MG PO DAILY Prescribed by: VANESSA VALDES on 06/24/221152 Discontinued Medications Lorazepam (Ativan) 0.5 Mg Tablet, 0.5 MG PO TID PRN for ANXIETY Discontinued Reason: No Longer Taking Prescribed by: VANESSA VALDES on 06/24/221151 Last Action: Discontinued Lorazepam (Ativan) 0.5 Mg Tablet, 0.5 MG PO Q6H PRN for ANXIETY Discontinued Reason: No Longer Taking Prescribed by: AKANKSHA MERIDA on 06/25/221218 Last Action: Discontinued Oxycodone Hcl (Oxyir Tablet) 5 Mg Tab, 5 MG PO TID Discontinued Reason: No Longer Taking Prescribed by: VANESSA VALDES on 06/24/221151 Last Action: Discontinued Review of Systems Review of Systems Constitutional: see HPI; No chills, No fever EENTM: No Nose Congestion, No Throat Pain Respiratory: Denies Cough, Denies Shortness of Air Cardiovascular: Denies Chest Pain, Denies Edema Gastrointestinal: See HPI, Abdominal Pain, Nausea, Vomiting Genitourinary: No Symptoms Reported Musculoskeletal: No back pain, No joint pain Skin: no symptoms reported Psychiatric/Neurological: Anxiety, Emotional Problems All Other Systems Reviewed Negative Unless Noted: Yes Past Txzbqrq-Swglgd-Ngnhwc Hx Patient Social History Tobacco Use?: No Use of E-Cig and/or Vaping dev: Yes E-Cig or Vaping type used: Nicotine Substance use?: No Alcohol Use?: Yes Alcohol type: Hard Liquor Alcohol Frequency: Couple times a week Immunizations Up To Date First/Initial COVID19 Vaccinat: NONE Second COVID19 Vaccination James: NONE Third COVID19 Vaccination Date: NONE Past Medical History Surgery/Hospitalization HX: RT CALCANEUS SURGERY/SCAPHOID BONE GRAFT/EGD X2 Surgeries: Yes Abdominal, Orthopedic Respiratory: No Cardiac: No Neurological: No Genitourinary: No Gastrointestinal: Yes ("Tear of esophagus") Ulcer Musculoskeletal: Yes (BILAT 5TH METACARPAL FRACTURES-NO SURGERY) Fractures Endocrine: No HEENT: No Cancer: No Psychosocial: Yes Anxiety, Depression Integumentary: No Blood Disorders: No Family Medical History Reviewed Nursing Family Hx Physical Exam Vital Signs Vital Signs - First Documented 08/07/22 07:04 Temp 36.5 Pulse 112 Resp 18 B/P (MAP) 139/92 (108) Pulse Ox 97 O2 Delivery Room Air Capillary Refill : Less Than 3 Seconds Height/Weight/BMI Height: '" Weight: lbs. oz. kg; 32.00 BMI Method: General Appearance: WD/WN, no apparent distress HEENT: PERRL/EOMI, pharynx normal Neck: full range of motion, supple Respiratory: lungs clear, normal breath sounds Cardiovascular: no murmur, tachycardia Gastrointestinal: normal bowel sounds, soft, tenderness (Epigastric and bilateral upper quadrants), hepatomegaly Back: normal inspection, no CVA tenderness, no vertebral tenderness Neurologic/Psychiatric: alert, oriented x 3 Skin: normal color, warm/dry Progress/Results/Core Measures Results/Orders Lab Results Laboratory Tests Test 08/07/22 07:20 Range/Units White Blood Count 12.4 H 4.3-11.0 10^3/uL Red Blood Count 5.02 4.30-5.52 10^6/uL Hemoglobin 15.7 13.3-17.7 g/dL Hematocrit 46 40-54 % Mean Corpuscular Volume 92 80-99 fL Mean Corpuscular Hemoglobin 31 25-34 pg Mean Corpuscular Hemoglobin Concent 34 32-36 g/dL Red Cell Distribution Width 13.4 10.0-14.5 % Platelet Count 269 130-400 10^3/uL Mean Platelet Volume 8.7 L 9.0-12.2 fL Immature Granulocyte % (Auto) 0 % Neutrophils (%) (Auto) 85 H 42-75 % Lymphocytes (%) (Auto) 9 L 12-44 % Monocytes (%) (Auto) 4 0-12 % Eosinophils (%) (Auto) 2 0-10 % Basophils (%) (Auto) 0 0-10 % Neutrophils # (Auto) 10.6 H 1.8-7.8 10^3/uL Lymphocytes # (Auto) 1.1 1.0-4.0 10^3/uL Monocytes # (Auto) 0.5 0.0-1.0 10^3/uL Eosinophils # (Auto) 0.2 0.0-0.3 10^3/uL Basophils # (Auto) 0.0 0.0-0.1 10^3/uL Immature Granulocyte # (Auto) 0.0 0.0-0.1 10^3/uL Sodium Level 143 135-145 MMOL/L Potassium Level 3.8 3.6-5.0 MMOL/L Chloride Level 111 H 98-107 MMOL/L Carbon Dioxide Level 19 L 21-32 MMOL/L Anion Gap 13 5-14 MMOL/L Blood Urea Nitrogen 9 7-18 MG/DL Creatinine 0.87 0.60-1.30 MG/DL Estimat Glomerular Filtration Rate 118 BUN/Creatinine Ratio 10 Glucose Level 104 70-105 MG/DL Calcium Level 8.9 8.5-10.1 MG/DL Corrected Calcium 8.6 8.5-10.1 MG/DL Magnesium Level 1.9 1.6-2.4 MG/DL Total Bilirubin 0.4 0.1-1.0 MG/DL Aspartate Amino Transf (AST/SGOT) 66 H 5-34 U/L Alanine Aminotransferase (ALT/SGPT) 149 H 0-55 U/L Alkaline Phosphatase 66 40-136 U/L C-Reactive Protein High Sensitivity 0.88 H 0.00-0.50 MG/DL Total Protein 7.7 6.4-8.2 GM/DL Albumin 4.4 3.2-4.5 GM/DL Lipase 20 8-78 U/L My Orders Orders - WIN RAMOS MD Cbc With Automated Diff (08/07/22 07:19) Comprehensive Metabolic Panel (08/07/22 07:19) Hs C Reactive Protein (08/07/22 07:19) Lipase (08/07/22 07:19) Magnesium (08/07/22 07:19) Ondansetron Injection (Zofran Injectio (08/07/22 07:30) Lactated Ringers (Lr 1000 Ml Iv Solution (08/07/22 07:19) Ed Iv/Invasive Line Start (08/07/22 07:19) Fentanyl Inj (Sublimaze Injection) (08/07/22 07:19) Famotidine Tablet (Pepcid Tablet) (08/07/22 07:30) Pantoprazole Injection (Protonix Injecti (08/07/22 07:30) Hydromorphone Injection (Dilaudid Inject (08/07/22 08:15) Medications Given in ED Current Medications Medications Dose Ordered Sig/Hayes Route Start Time Stop Time Status Last Admin Dose Admin Famotidine 20 mg ONCE ONCE PO 08/07/22 07:30 08/07/22 07:31 DC 08/07/22 07:33 20 MG Hydromorphone HCl 0.5 mg ONCE ONCE IV 08/07/22 08:15 08/07/22 08:16 DC 08/07/22 08:16 0.5 MG Ondansetron HCl 4 mg ONCE ONCE IVP 08/07/22 07:30 08/07/22 07:31 DC 08/07/22 07:33 4 MG Pantoprazole 40 mg ONCE ONCE IV 08/07/22 07:30 08/07/22 07:31 DC 08/07/22 07:33 40 MG Vital Signs/I&O 08/07/22 08/07/22 08/07/22 07:04 07:33 08:16 Temp 36.5 36.5 36.5 Pulse 112 Resp 18 B/P (MAP) 139/92 (108) Pulse Ox 97 O2 Delivery Room Air Blood Pressure Mean: 108 Progress Progress Note : Progress Note Seen and evaluated. IV, labs including CBC and CMP ordered. I did review previous history including summary of last admission. He did have stable hemoglobin in the range of 16 at that time and was discharged with outpatient follow-up with Dr. Graham for endoscopy. This is not happened apparently. He was also discharged on omeprazole which he is not taking currently. We will check current levels and compared to previous specifically with respect to hemoglobin and liver functions. I did add lipase to evaluate for pancreatitis. LR 1 L bolus ordered as well as Zofran 4 mg IV for nausea and omeprazole 40 mg IV for abdominal pain and likely gastritis. We will give Pepcid 20 mg p.o. as well (IV form not available). Fentanyl 75 mcg IV ordered for pain. Monitor patient. 0859: Labs reviewed and compare well to previous visit. I did give an additional dose of pain medicine with Dilaudid 0.5 mg IV. His pain is much better currently. He has medicines both for alcoholism and for his stomach and follow-up available at [facility] for alcoholism concerns. He was reassured with the current lab values for his liver which showed only slightly elevated liver enzymes but normal total bili. Discharged home with return precautions. Patient verbalized understanding instructions and agreement with plan. Departure Impression Primary Impression: Upper abdominal pain Additional Impression: Alcohol dependence Qualified Codes: F10.29 - Alcohol dependence with unspecified alcohol- induced disorder Disposition: HOME, SELF-CARE Condition: Stable Departure-Patient Inst. Decision time for Depature: 09:00 Referrals: NO,LOCAL PHYSICIAN (PCP/Family) Primary Care Physician Patient Instructions: ALCOHOL AND SUBSTANCE ABUSE, Gastritis (DC), Severe Abdominal Pain, Adult (DC) Add. Discharge Instructions: All discharge instructions reviewed with patient and/or family. Voiced understanding. It is very important that you refrain from alcohol. Take your prescribed medications as directed. Follow-up with [facility] for recheck and further evaluation and to continue and substance abuse program. Return for worse pain, fever, vomiting, weakness, breathing problems or other concerns as needed. Scripts Hydrocodone Bit/Acetaminophen (HYDROcodone/APAP 5 MG/325 MG TAB) 1 Tab Tab 1 TAB PO Q6H for Pain, #6 TAB 0 Refills Prov: WIN RAMOS MD 08/07/22 Copy Copies To 1: SEDA MUSA TIMOTHY D MD Aug 07, 2022 07:49
[2022-08-07 07:50] LABS: CREATININE SERUM 0.87 MG/DL (0.60-1.30)
[2022-08-07 07:52] LABS: MAGNESIUM 1.9 MG/DL (1.6-2.4)
[2022-08-07] MEDS ORDERED: HYDROmorphone 2 MG/ML VIAL (DILAUDID) IV ONE (08:15)
[2022-08-07] MEDS ORDERED: ESCI10TA PO (08:22)
[2022-08-07] MEDS ORDERED: CLON0.5T PO (08:22)
[2022-08-07] MEDS ORDERED: ACHD5005 PO (09:03)
[2022-08-07 09:09] VITALS: BP 139/92
== END 2022-08-07 09:09 | disposition home or self-care (01) ==
LOC: EDUNIT# 06:59 → ER 07:00
DX: F10.20 Alcohol dependence, uncomplicated (principal); R10.13 Epigastric pain; F17.290 Nicotine dependence, other tobacco product, uncomplicated; Z28.310 Unvaccinated for COVID-19
CPT/HCPCS: 36415; 80053; 83690; 83735; 85025; 86141

== ENCOUNTER 2022-10-01 09:49 | Emergency (ER) | payer SELFPAY ==
[~2022-10-01] VITALS: Ht 177.8 cm; Wt 97.0 kg
[~2022-10-01 09:49] MED LIST changes: +ACHD5005 PO; +CLON0.5T PO; +ESCI10TA PO
[2022-10-01] MEDS ORDERED: fentaNYL INJ 100 MCG/2 ML AMP IVP ONE (10:45)
[2022-10-01] MEDS ORDERED: ONDANSETRON 4 MG/2 ML (SDV) Z0FRAN IVP ONE (10:45)
[2022-10-01] MEDS ORDERED: LACTATED RINGERS 1,000 ML IV SCH (10:45)
--- NOTE | 2022-10-01 10:51 | ED Abdominal Pain ---
General Chief Complaint: Abdominal/GI Problems Stated Complaint: ABD PAIN VOMITING BLOOD/COFFEE GROUNDS Source of Information: Patient Exam Limitations: No Limitations History of Present Illness Date Seen by Provider: Oct 01, 2022 Time Seen by Provider: 10:32 Initial Comments Patient is a 32-year-old male who presents to the emergency room with a chief complaint of diffuse abdominal pain, vomiting blood and passing black tarry stool. Patient states symptom onset about 3 days ago. He states he is very depressed, he is very anxious. He knows that he has a history of liver disease but cannot quit drinking alcohol. He states that he will drink from 2 pints to 1/5 daily. He has not been taking his prescribed medications for the last 2 months. He states that he is scared he is going to . No recent fevers, chills, productive cough. He has not taken anything for the symptoms. He does smoke cigarettes. No prior abdominal surgeries. Has never been referred to a liver specialist. States that his last alcohol was yesterday. Timing/Duration: 3-4 Days Severity/Quality: Severe, Cramping Location: Generalized Abdomen Radiation: No Radiation Activities at Onset: Other (drinking) Associated Symptoms: Nausea/Vomiting Allergies and Home Medications Allergies Coded Allergies: No Known Drug Allergies (Unverified , 06/23/22) Patient Home Medication List Home Medication List Reviewed: Yes Clonazepam (Klonopin) 0.5 Mg Tablet, 0.5 MG PO BID, (Reported) Entered as Reported by: JORJE BLACKWELL on 08/07/22821 Escitalopram Oxalate (Escitalopram Oxalate) 10 Mg Tablet, 10 MG PO DAILY, (Reported) Entered as Reported by: CORBY KELLEY on 06/24/22 0951 Escitalopram Oxalate (Lexapro) 10 Mg Tablet, 10 MG PO, (Reported) Entered as Reported by: JORJE BLACKWELL on 08/07/22821 Hydrocodone Bit/Acetaminophen (HYDROcodone/APAP 5 MG/325 MG TAB) 1 Tab Tab, 1 TAB PO Q6H Prescribed by: WIN RAMOS on 08/07/22 0904 Hyoscyamine Sulfate (Levsin-Sl) 0.125 Mg Tab.subl, 0.125 MG SL Q4H Prescribed by: AKANKSHA MERIDA on 06/25/22 1219 Multivitamin (Multivitamin) 1 Each Tablet, 1 EACH PO DAILY Prescribed by: VANESSA VALDES on 06/24/22 1153 Ondansetron (Ondansetron Odt) 4 Mg Tab.rapdis, 4 MG SL Q8H PRN for NAUSEA/VOMITING Prescribed by: AKANKSHA MERIDA on 10/01/22 1207 Pantoprazole Sodium (Protonix) 40 Mg Tablet.dr, 40 MG PO BID Prescribed by: VANESSA VALDES on 06/24/22 1152 Pantoprazole Sodium (Protonix) 20 Mg Tablet.dr, 20 MG PO BID Prescribed by: AKANKSHA MERIDA on 10/01/22 1207 Sucralfate (Carafate) 1 Gram Tablet, 1 GM PO Q6H Prescribed by: AKANKSHA MERIDA on 06/25/22 1219 Thiamine HCl (Vitamin B-1) 100 Mg Tablet, 100 MG PO DAILY Prescribed by: VANESSA VALDES on 06/24/22 1153 Review of Systems Review of Systems Constitutional: see HPI EENTM: No Symptoms Reported Respiratory: No Symptoms Reported Cardiovascular: No Symptoms Reported Gastrointestinal: Blood Streaked Stools, Nausea, Vomiting Genitourinary: No Symptoms Reported Musculoskeletal: no symptoms reported Skin: no symptoms reported Psychiatric/Neurological: Anxiety, Emotional Problems All Other Systems Reviewed Negative Unless Noted: Yes Past Pyswyzi-Gotupj-Wxbtcw Hx Patient Social History Tobacco Use?: Yes Tobacco type used: Cigarettes Smokeless Tobacco Frequency: Current Everyday User Substance use?: No Alcohol Use?: Yes Alcohol type: Hard Liquor Alcohol Frequency: Daily Pt feels they are or have been: No Immunizations Up To Date Influenza Vaccine Up-to-Date: No; Not Current First/Initial COVID19 Vaccinat: NONE Second COVID19 Vaccination James: NONE Third COVID19 Vaccination Date: NONE Past Medical History Surgery/Hospitalization HX: FATTY LIVER DISEASE, ALCOHOLISM RT CALCANEUS SURGERY/SCAPHOID BONE GRAFT/EGD X2 Surgeries: Yes Abdominal, Orthopedic Respiratory: No Cardiac: No Neurological: No Genitourinary: No Gastrointestinal: Yes ("Tear of esophagus") Ulcer Musculoskeletal: Yes (BILAT 5TH METACARPAL FRACTURES-NO SURGERY) Fractures Endocrine: No HEENT: No Cancer: No Psychosocial: Yes Anxiety, Depression Integumentary: No Blood Disorders: No Physical Exam Vital Signs Vital Signs - First Documented 10/01/22 10:00 Temp 36.6 Pulse 18 Resp 98 B/P (MAP) 138/82 (100) Pulse Ox 98 O2 Delivery Room Air Capillary Refill : Height/Weight/BMI Height: '" Weight: lbs. oz. kg; 32.00 BMI Method: General Appearance: WD/WN, no apparent distress HEENT: PERRL/EOMI, normal ENT inspection; No scleral icterus (R), No pale conjunctivae (R), No pale conjunctivae (L) Neck: normal inspection Respiratory: lungs clear, normal breath sounds, no respiratory distress, no accessory muscle use Cardiovascular: regular rate, rhythm Gastrointestinal: normal bowel sounds, non tender, soft Extremities: normal range of motion Neurologic/Psychiatric: alert, normal mood/affect, oriented x 3 Skin: normal color, warm/dry; No pallor Progress/Results/Core Measures Results/Orders Lab Results Laboratory Tests Test 10/01/22 10:30 Range/Units White Blood Count 8.2 4.3-11.0 10^3/uL Red Blood Count 5.10 4.30-5.52 10^6/uL Hemoglobin 16.1 13.3-17.7 g/dL Hematocrit 47 40-54 % Mean Corpuscular Volume 93 80-99 fL Mean Corpuscular Hemoglobin 32 25-34 pg Mean Corpuscular Hemoglobin Concent 34 32-36 g/dL Red Cell Distribution Width 13.2 10.0-14.5 % Platelet Count 279 130-400 10^3/uL Mean Platelet Volume 9.1 9.0-12.2 fL Immature Granulocyte % (Auto) 0 % Neutrophils (%) (Auto) 68 42-75 % Lymphocytes (%) (Auto) 21 12-44 % Monocytes (%) (Auto) 8 0-12 % Eosinophils (%) (Auto) 3 0-10 % Basophils (%) (Auto) 1 0-10 % Neutrophils # (Auto) 5.6 1.8-7.8 10^3/uL Lymphocytes # (Auto) 1.7 1.0-4.0 10^3/uL Monocytes # (Auto) 0.6 0.0-1.0 10^3/uL Eosinophils # (Auto) 0.2 0.0-0.3 10^3/uL Basophils # (Auto) 0.1 0.0-0.1 10^3/uL Immature Granulocyte # (Auto) 0.0 0.0-0.1 10^3/uL Sodium Level 139 135-145 MMOL/L Potassium Level 4.0 3.6-5.0 MMOL/L Chloride Level 104 98-107 MMOL/L Carbon Dioxide Level 24 21-32 MMOL/L Anion Gap 11 5-14 MMOL/L Blood Urea Nitrogen 10 7-18 MG/DL Creatinine 0.84 0.60-1.30 MG/DL Estimat Glomerular Filtration Rate 120 BUN/Creatinine Ratio 12 Glucose Level 79 70-105 MG/DL Calcium Level 9.4 8.5-10.1 MG/DL Corrected Calcium 9.1 8.5-10.1 MG/DL Total Bilirubin 0.5 0.1-1.0 MG/DL Aspartate Amino Transf (AST/SGOT) 39 H 5-34 U/L Alanine Aminotransferase (ALT/SGPT) 139 H 0-55 U/L Alkaline Phosphatase 76 40-136 U/L Total Protein 7.3 6.4-8.2 GM/DL Albumin 4.4 3.2-4.5 GM/DL Lipase 12 8-78 U/L Serum Alcohol < 10 <10 MG/DL My Orders Orders - AKANKSHA MERIDA MD Ed Iv/Invasive Line Start (10/01/22 10:36) Cbc With Automated Diff (10/01/22 10:36) Comprehensive Metabolic Panel (10/01/22 10:36) Lipase (10/01/22 10:36) Alcohol (10/01/22 10:36) Lactated Ringers (Lr 1000 Ml Iv Solution (10/01/22 10:45) Ondansetron Injection (Zofran Injectio (10/01/22 10:45) Fentanyl Inj (Sublimaze Injection) (10/01/22 10:45) Pantoprazole Injection (Protonix Injecti (10/01/22 11:00) Ketorolac Injection (Toradol Injection) (10/01/22 11:30) Medications Given in ED Vital Signs/I&O 10/01/22 10/01/22 10:00 12:11 Temp 36.6 Pulse 18 16 Resp 98 74 B/P (MAP) 138/82 (100) 141/93 Pulse Ox 98 95 O2 Delivery Room Air Room Air Progress Progress Note : Time: 12:01 Progress Note Patient seen and evaluated, 32-year-old male with a long history of chronic alcoholism and complaints of GI bleeding. Evaluation today includes a physical exam, CBC, chemistry, lipase and alcohol level. Patient has mildly elevated liver functions, his alcohol is undetectable. His CBC is completely normal, no findings concerning for anemia. His vital signs have been stable. When I presented him with all of the findings he seems slightly reassured and then began negotiating for pain medications as an outpatient. He was given some fentanyl but states that it did not work. I offered him Toradol. He asked for tramadol. He is asking for prescriptions because he has to leave from work on Tuesday. I advised him that this is a chronic problem and that he needs to follow-up with his primary care physician. It is not the emergency department physician to manage chronic pain. He has no findings concerning for any condition that would require hospitalization or narcotic pain management. I advised him that it would be a risk to his future health to provide narcotics in light of his addiction to alcohol. He seems quite frustrated. Toradol is being given at this time. Patient will be discharged to follow-up with his primary c are doctor. Prescriptions for Zofran and Protonix provided. Departure Impression Primary Impression: Abdominal pain Qualified Codes: R10.84 - Generalized abdominal pain Additional Impression: Alcoholism Disposition: 01 HOME, SELF-CARE Condition: Stable Departure-Patient Inst. Decision time for Depature: 12:05 Referrals: [facility]/MELANIA ALATORRE,LOCAL PHYSICIAN (PCP) Primary Care Physician Patient Instructions: Abdominal Pain, Adult ED, Effects of Alcohol on Your Health Add. Discharge Instructions: Please restart all of your daily medications. I have written you prescriptions for an acid dishwashing machine repairer, Protonix. Take this twice daily. You will need to see your primary care doctor for refills. Ondansetron/Zofran every 8 hours as needed for nausea. Follow a bland or clear liquid diet for the next 12 to 24 hours then slowly advance as tolerated. You will need to see your primary care doctor for further evaluation of your chronic liver disease. You should strongly consider detox, stopping drinking. [facility] [address] [place] [address] [facility] [phone] [address] [place] [address] Get Immediate Help [email or web address] or Call [phone]-(SAVE) Scripts Ondansetron (Ondansetron Odt) 4 Mg Tab.rapdis 4 MG SL Q8H PRN for NAUSEA/VOMITING, #15 TAB Prov: AKANKSHA MERIDA MD 10/01/22 Pantoprazole Sodium (Protonix) 20 Mg Tablet.dr 20 MG PO BID , #30 TAB Prov: AKANKSHA MERIDA MD 10/01/22 Work/School Note: Work Release Form Date Seen in the Emergency Department: Oct 01, 2022 Return to Work: Oct 02, 2022 Copy Copies To 1: SEDA MUSA KATHRYN M MD Oct 01, 2022 10:51
[2022-10-01 10:53] LABS: BASOPHILS # (AUTO) 0.1 10^3/uL (0.0-0.1); BASOPHILS % (AUTO) 1 % (0-10); EOSINOPHILS # (AUTO) 0.2 10^3/uL (0.0-0.3); EOSINOPHILS % (AUTO) 3 % (0-10); HEMATOCRIT 47 % (40-54); HEMOGLOBIN 16.1 g/dL (13.3-17.7); LYMPHOCYTES # (AUTO) 1.7 10^3/uL (1.0-4.0); LYMPHOCYTES % (AUTO) 21 % (12-44); MEAN CORPUSCULAR HEMOGLOBIN 32 pg (25-34); MEAN CORPUSCULAR HGB CONC 34 g/dL (32-36); MEAN CORPUSCULAR VOLUME 93 fL (80-99); MEAN PLATELET VOLUME 9.1 fL (9.0-12.2); MONOCYTES # (AUTO) 0.6 10^3/uL (0.0-1.0); MONOCYTES % (AUTO) 8 % (0-12); NEUTROPHILS # (AUTO) 5.6 10^3/uL (1.8-7.8); NEUTROPHILS % (AUTO) 68 % (42-75); PLATELET COUNT 279 10^3/uL (130-400); WHITE BLOOD COUNT 8.2 10^3/uL (4.3-11.0)
[2022-10-01] MEDS ORDERED: PANTOPRAZOLE 40 MG (PROTONIX) VIAL IV ONE (11:00)
[2022-10-01 11:03] LABS: ALBUMIN 4.4 GM/DL (3.2-4.5); CHLORIDE 104 MMOL/L (98-107); SODIUM 139 MMOL/L (135-145)
[2022-10-01 11:04] LABS: CALCIUM 9.4 MG/DL (8.5-10.1)
[2022-10-01 11:05] LABS: GLUCOSE 79 MG/DL (70-105)
[2022-10-01 11:06] LABS: TOTAL PROTEIN 7.3 GM/DL (6.4-8.2)
[2022-10-01 11:07] LABS: BILIRUBIN,TOTAL 0.5 MG/DL (0.1-1.0); CARBON DIOXIDE 24 MMOL/L (21-32)
[2022-10-01 11:09] LABS: ALKALINE PHOSPHATASE 76 U/L (40-136); CREATININE SERUM 0.84 MG/DL (0.60-1.30); GFR ESTIMATED 120
[2022-10-01 11:10] LABS: BUN/CREATININE RATIO 12
[2022-10-01 11:12] LABS: ALANINE AMINOTRANSFERASE 139 U/L (0-55)
[2022-10-01 11:13] LABS: LIPASE 12 U/L (8-78)
[2022-10-01] MEDS ORDERED: KETOROLAC 30 MG/ML VIAL IVP ONE (11:30)
[2022-10-01] MEDS ORDERED: ONDA4TAB11 SL (12:07)
[2022-10-01] MEDS ORDERED: PANT20TA2 PO (12:07)
[2022-10-01 12:11] VITALS: BP 141/93
== END 2022-10-01 12:11 | disposition home or self-care (01) ==
LOC: EDUNIT# 09:49 → ER 09:52
DX: R10.84 Generalized abdominal pain (principal); F10.20 Alcohol dependence, uncomplicated; R79.89 Other specified abnormal findings of blood chemistry; F17.210 Nicotine dependence, cigarettes, uncomplicated; Y90.0 Blood alcohol level of less than 20 mg/100 ml; Z87.19 Personal history of other diseases of the digestive system
CPT/HCPCS: 80053; 83690; 85025; 99281; G0480; 36415; 80320

== ENCOUNTER 2023-01-06 15:24 | Emergency (ER) | payer SELFPAY ==
[~2023-01-06] VITALS: Ht 175.2 cm; Wt 95.2 kg
[~2023-01-06 15:24] MED LIST changes: +ONDA4TAB11 SL; +PANT20TA2 PO
[2023-01-06] MEDS ORDERED: NS IV 1000 ML 1,000 ML IV STA (15:52)
[2023-01-06] MEDS ORDERED: fentaNYL INJ 100 MCG/2 ML AMP IVP STA (15:52)
[2023-01-06 15:58] LABS: BASOPHILS # (AUTO) 0.1 10^3/uL (0.0-0.1); BASOPHILS % (AUTO) 1 % (0-10); EOSINOPHILS # (AUTO) 0.2 10^3/uL (0.0-0.3); EOSINOPHILS % (AUTO) 2 % (0-10); HEMATOCRIT 48 % (40-54); HEMOGLOBIN 16.3 g/dL (13.3-17.7); LYMPHOCYTES # (AUTO) 2.1 10^3/uL (1.0-4.0); LYMPHOCYTES % (AUTO) 25 % (12-44); MEAN CORPUSCULAR HEMOGLOBIN 32 pg (25-34); MEAN CORPUSCULAR HGB CONC 34 g/dL (32-36); MEAN CORPUSCULAR VOLUME 92 fL (80-99); MONOCYTES # (AUTO) 0.7 10^3/uL (0.0-1.0); MONOCYTES % (AUTO) 8 % (0-12); NEUTROPHILS # (AUTO) 5.5 10^3/uL (1.8-7.8); NEUTROPHILS % (AUTO) 64 % (42-75); PLATELET COUNT 282 10^3/uL (130-400); WHITE BLOOD COUNT 8.5 10^3/uL (4.3-11.0)
[2023-01-06] MEDS ORDERED: PANTOPRAZOLE 40 MG (PROTONIX) VIAL IV ONE ×2 (16:00→16:15)
[2023-01-06 16:03] LABS: ALBUMIN 4.7 GM/DL (3.2-4.5)
[2023-01-06] MEDS ORDERED: PANTOPRAZOLE 40 MG (PROTONIX) VIAL ONE (16:03)
[2023-01-06 16:04] LABS: CHLORIDE 102 MMOL/L (98-107); POTASSIUM 4.1 MMOL/L (3.6-5.0); SODIUM 137 MMOL/L (135-145)
[2023-01-06 16:05] LABS: CALCIUM 9.6 MG/DL (8.5-10.1)
[2023-01-06 16:06] LABS: GLUCOSE 103 MG/DL (70-105); TOTAL PROTEIN 7.8 GM/DL (6.4-8.2)
[2023-01-06 16:07] LABS: CARBON DIOXIDE 26 MMOL/L (21-32)
[2023-01-06 16:08] LABS: BILIRUBIN,TOTAL 0.6 MG/DL (0.1-1.0)
--- NOTE | 2023-01-06 16:08 | ED GI ---
General Chief Complaint: Abdominal/GI Problems Stated Complaint: VOMITTING BLOOD Nursing Triage Note: PT AMB TO [facility] WITH CC OF VOMITING COFFEE GROUND EMESIS. PT STATES THAT IT HAS BEEN GOING ON FOR 6 MONTHS. PT DRINKS 1/5 OF WHISKEY A DAY AND HAS A HX OF FATTY LIVER DISEASE. Source of Information: Patient Exam Limitations: No Limitations History of Present Illness Date Seen by Provider: Jan 06, 2023 Time Seen by Provider: 16:05 Initial Comments Patient is a 32-year-old male who presents to the ED for hematemesis and abdominal pain. Patient is a chronic alcohol user. Reports drinking 1/5 of whiskey daily. Patient [place] He states he has hematemesis 3-4 times every 2 weeks. He reported 2 episodes of coffee-ground emesis and bright red blood over the past 2 days. Reports a few episodes of watery diarrhea without any blood or mucus. States he has history of stage III fatty liver. Has had multiple EGDs states diagnosed with ulcer, esophagitis. Not currently take any medication as he does not want to. Patient is requesting help for detox. Has been to rehab in the past. He is wanting to stop drinking. Denies any drug use, tremoring, chest pain, cough, shortness of breath, visual changes, headache, dizziness, weakness, dizziness, paleness. Denies any blood thinner use. Allergies and Home Medications Allergies Coded Allergies: No Known Drug Allergies (Unverified , 06/23/22) Patient Home Medication List Home Medication List Reviewed: Yes Clonazepam (Klonopin) 0.5 Mg Tablet, 0.5 MG PO BID, (Reported) Entered as Reported by: JORJE BLACKWELL on 08/07/22821 Escitalopram Oxalate (Escitalopram Oxalate) 10 Mg Tablet, 10 MG PO DAILY, (Reported) Entered as Reported by: CORBY KELLEY on 06/24/22 09 Escitalopram Oxalate (Lexapro) 10 Mg Tablet, 10 MG PO, (Reported) Entered as Reported by: JORJE BLACKWELL on 08/07/22821 Hydrocodone Bit/Acetaminophen (HYDROcodone/APAP 5 MG/325 MG TAB) 1 Tab Tab, 1 TAB PO Q6H Prescribed by: WIN RAMOS on 08/07/22 09 Hydrocodone/Acetaminophen (Hydrocodone-Acetamin 5-325 mg) 5 Mg-325 Mg Tablet, 1 TAB PO Q4H PRN for PAIN-MODERATE (5-7) Prescribed by: GREGORY OCHOA on 01/06/23 171 Hyoscyamine Sulfate (Levsin-Sl) 0.125 Mg Tab.subl, 0.125 MG SL Q4H Prescribed by: AKANKSHA MERIDA on 06/25/22 121 Lorazepam (Ativan) 0.5 Mg Tablet, 0.5 MG PO TID PRN for ANXIETY Prescribed by: GREGORY OCHOA on 01/06/23 175 Multivitamin (Multivitamin) 1 Each Tablet, 1 EACH PO DAILY Prescribed by: VANESSA VALDES on 06/24/22 115 Ondansetron (Ondansetron Odt) 4 Mg Tab.rapdis, 4 MG SL Q8H PRN for NAUSEA/VOMITING Prescribed by: AKANKSHA MERIDA on 10/01/22 1207 Pantoprazole Sodium (Protonix) 40 Mg Tablet.dr, 40 MG PO BID Prescribed by: VANESSA VALDES on 06/24/22 115 Pantoprazole Sodium (Protonix) 20 Mg Tablet.dr, 20 MG PO BID Prescribed by: AKANKSHA MERIDA on 10/01/22 1207 Pantoprazole Sodium (Protonix) 40 Mg Tablet.dr, 40 MG PO DAILY Prescribed by: GREGORY OCHOA on 01/06/23 171 Sucralfate (Carafate) 1 Gram Tablet, 1 GM PO Q6H Prescribed by: AKANKSHA MERIDA on 06/25/22 1219 Sucralfate (Carafate) 1 Gram Tablet, 1 GM PO QID Prescribed by: GREGORY OCHOA on 01/06/23 171 Thiamine HCl (Vitamin B-1) 100 Mg Tablet, 100 MG PO DAILY Prescribed by: VANESSA VADLES on 06/24/22 115 Review of Systems Review of Systems Constitutional: No chills, No diaphoresis, No fever, No malaise, No weakness EENTM: No Double Vision, No Mouth Pain, No Mouth Swelling Respiratory: Denies Cough Cardiovascular: Denies Chest Pain, Denies Edema, Denies Irregular Heart Rate Gastrointestinal: Abdominal Pain, Nausea; Denies Rectal Bleeding; Vomiting, Other (Hematemesis) Genitourinary: Denies Burning, Denies Discharge, Denies Drainage, Denies Flank Pain Musculoskeletal: No back pain Skin: No change in color, No change in hair/nails All Other Systems Reviewed Negative Unless Noted: Yes Past Lkwdfys-Udnhhm-Khvixr Hx Patient Social History Tobacco Use?: Yes Tobacco type used: Cigarettes Substance use?: No Alcohol Use?: Yes Alcohol type: Hard Liquor Alcohol Frequency: Daily Immunizations Up To Date First/Initial COVID19 Vaccinat: NONE Second COVID19 Vaccination James: NONE Third COVID19 Vaccination Date: NONE Past Medical History Surgery/Hospitalization HX: FATTY LIVER DISEASE, ALCOHOLISM RT CALCANEUS SURGERY/SCAPHOID BONE GRAFT/EGD X2 Surgeries: Yes Abdominal, Orthopedic Respiratory: No Cardiac: No Neurological: No Genitourinary: No Gastrointestinal: Yes ("Tear of esophagus") Ulcer Musculoskeletal: Yes (BILAT 5TH METACARPAL FRACTURES-NO SURGERY) Fractures Endocrine: No HEENT: No Cancer: No Psychosocial: Yes Anxiety, Depression Integumentary: No Blood Disorders: No Physical Exam Vital Signs Vital Signs - First Documented 01/06/23 15:35 Temp 36.7 Pulse 88 B/P (MAP) 150/86 (107) Pulse Ox 98 O2 Delivery Room Air Capillary Refill : Height/Weight/BMI Height: '" Weight: lbs. oz. kg; 31.00 BMI Method: General Appearance: WD/WN, no apparent distress HEENT: PERRL/EOMI, normal ENT inspection, TMs normal, pharynx normal Neck: non-tender, full range of motion, supple, normal inspection Respiratory: chest non-tender, lungs clear, normal breath sounds, no respiratory distress, no accessory muscle use Cardiovascular: regular rate, rhythm, no edema, no gallop, no JVD Gastrointestinal: normal bowel sounds, soft, no organomegaly, no pulsatile mass, tenderness (Right upper quadrant epigastric tenderness. No rebound or guarding. 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, no motor/sensory deficits, alert, normal mood/affect, oriented x 3 Skin: normal color, warm/dry Progress/Results/Core Measures Results/Orders Lab Results Laboratory Tests Test 01/06/23 15:43 01/06/23 16:17 Range/Units White Blood Count 8.5 4.3-11.0 10^3/uL Red Blood Count 5.18 4.30-5.52 10^6/uL Hemoglobin 16.3 13.3-17.7 g/dL Hematocrit 48 40-54 % Mean Corpuscular Volume 92 80-99 fL Mean Corpuscular Hemoglobin 32 25-34 pg Mean Corpuscular Hemoglobin Concent 34 32-36 g/dL Red Cell Distribution Width 13.6 10.0-14.5 % Platelet Count 282 130-400 10^3/uL Mean Platelet Volume 9.0 9.0-12.2 fL Immature Granulocyte % (Auto) 0 % Neutrophils (%) (Auto) 64 42-75 % Lymphocytes (%) (Auto) 25 12-44 % Monocytes (%) (Auto) 8 0-12 % Eosinophils (%) (Auto) 2 0-10 % Basophils (%) (Auto) 1 0-10 % Neutrophils # (Auto) 5.5 1.8-7.8 10^3/uL Lymphocytes # (Auto) 2.1 1.0-4.0 10^3/uL Monocytes # (Auto) 0.7 0.0-1.0 10^3/uL Eosinophils # (Auto) 0.2 0.0-0.3 10^3/uL Basophils # (Auto) 0.1 0.0-0.1 10^3/uL Immature Granulocyte # (Auto) 0.0 0.0-0.1 10^3/uL Prothrombin Time 12.5 12.2-14.7 SEC INR Comment 0.9 0.8-1.4 Activated Partial Thromboplast Time 29 24-35 SEC Sodium Level 137 135-145 MMOL/L Potassium Level 4.1 3.6-5.0 MMOL/L Chloride Level 102 98-107 MMOL/L Carbon Dioxide Level 26 21-32 MMOL/L Anion Gap 9 5-14 MMOL/L Blood Urea Nitrogen 11 7-18 MG/DL Creatinine 0.95 0.60-1.30 MG/DL Estimat Glomerular Filtration Rate 110 BUN/Creatinine Ratio 12 Glucose Level 103 70-105 MG/DL Calcium Level 9.6 8.5-10.1 MG/DL Corrected Calcium 8.5-10.1 MG/DL Total Bilirubin 0.6 0.1-1.0 MG/DL Aspartate Amino Transf (AST/SGOT) 46 H 5-34 U/L Alanine Aminotransferase (ALT/SGPT) 110 H 0-55 U/L Alkaline Phosphatase 82 40-136 U/L Total Protein 7.8 6.4-8.2 GM/DL Albumin 4.7 H 3.2-4.5 GM/DL Lipase 34 8-78 U/L Serum Alcohol < 10 <10 MG/DL Urine Color ORANGE Urine Clarity CLOUDY Urine pH 8.0 5-9 Urine Specific [place] 1.010 L 1.016-1.022 Urine Protein 1+ H NEGATIVE Urine Glucose (UA) NEGATIVE NEGATIVE Urine Ketones NEGATIVE NEGATIVE Urine Nitrite NEGATIVE NEGATIVE Urine Bilirubin NEGATIVE NEGATIVE Urine Urobilinogen 1.0 < = 1.0 MG/DL Urine Leukocyte Esterase NEGATIVE NEGATIVE Urine RBC (Auto) NEGATIVE NEGATIVE Urine RBC RARE /HPF Urine WBC RARE /HPF Urine Squamous Epithelial Cells 0-2 /HPF Urine Crystals PRESENT H /LPF Urine Amorphous Sediment MOD [place] PHOSPHATE H /LPF Urine Bacteria MODERATE H /HPF Urine Casts NONE /LPF Urine Mucus NEGATIVE /LPF Urine Culture Indicated YES My Orders Orders - CLARE YA Ua Culture If Indicated (01/06/23 15:42) Cbc With Automated Diff (01/06/23 15:52) Comprehensive Metabolic Panel (01/06/23 15:52) Lipase (01/06/23 15:52) Alcohol (01/06/23 15:52) Ns Iv 1000 Ml (Sodium Chloride 0.9%) (01/06/23 15:52) Fentanyl Inj (Sublimaze Injection) (01/06/23 15:52) Pantoprazole Injection (Protonix Injecti (01/06/23 16:00) Partial Thromboplastin Time (01/06/23 15:53) Protime With Inr (01/06/23 15:53) Pantoprazole Injection (Protonix Injecti (01/06/23 16:03) Urine Culture (01/06/23 16:17) Hydromorphone Injection (Dilaudid Inject (01/06/23 16:45) Medications Given in ED Current Medications Medications Dose Ordered Sig/Hayes Route Start Time Stop Time Status Last Admin Dose Admin Hydromorphone HCl 0.5 mg ONCE ONCE IV 01/06/23 16:45 01/06/23 16:46 DC 01/06/23 16:53 0.5 MG Pantoprazole 80 mg ONCE ONCE IV 01/06/23 16:00 01/06/23 16:11 DC 01/06/23 16:04 80 MG Vital Signs/I&O 01/06/23 01/06/23 15:35 17:24 Temp 36.7 Pulse 88 B/P (MAP) 150/86 (107) 138/92 Pulse Ox 98 O2 Delivery Room Air Blood Pressure Mean: 107 Departure Communication (PCP) Reviewed previous ER visits, H&P, lab testing. Patient has been seen here 3-4 times for abdominal pain and hematemesis. Chronic alcohol user drinks about 1/5 of whiskey daily. Has been recommended to stop provided outpatient resources and medication but states he did not take the medication. Reports detox without much improvement. He states his job is willing to pay for him to go into detox. Provided outpatient resources. Complaining of hematemesis over the past 2 days with coffee-ground emesis and bright red blood. 2 different episodes. Upper abdominal discomfort with similar type pain in the past. Due to current presentation CBC, CMP, coags, urinalysis was initiated. Differential diagnosis of gastric ulcer, pancreatitis, esophagitis, hepatitis, cirrhosis. No active vomiting blood here. Patient did show me pictures of hematemesis at home. Patient was given IV Protonix 80 mg. Patient was given a liter of fluid. CBC within normal limits. Chemistry shows slightly elevated liver enzymes with higher levels in the past. Normal lipase. Urinalysis was unremarkable. No chest pain, or shortness of breath. Reports chronic cough. Patient was given IV fentanyl 50 mcg and Dilaudid 0.5 mg with improvement of pain. Patient tolerating p.o. fluids. No active vomiting. No hematemesis. Reevaluation of the abdomen without any tenderness. Imaging was held at this time. No surgical abdomen. No lower extremity swelling. Patient is not jaundiced. Discussed with patient continue drinking will result in cirrhosis requiring liver transplant. Patient acknowledges. Provided outpatient resources for detox [place]. Will discharge with a few days worth of pain medication, Protonix and Carafate for potential gastritis, gastric ulcer. Discussed diet changes. Recommend staying hydrated. Return precautions were discussed with patient. Patient states he wants something for alcohol detox. Discussed provide a few days of Ativan to help with mild withdrawal symptoms. Will need to follow-up with his primary care physician for further treatment. Impression Primary Impression: Hematemesis Additional Impression: Upper abdominal pain Disposition: 01 HOME, SELF-CARE Condition: Stable Departure-Patient Inst. Decision time for Depature: 17:09 Referrals: [facility],LOCAL PHYSICIAN (PCP) Primary Care Physician Patient Instructions: Gastric Ulcer (DC) Scripts Lorazepam (Ativan) 0.5 Mg Tablet 0.5 MG PO TID PRN for ANXIETY, #6 TAB Prov: CLARE YA 01/06/23 Hydrocodone/Acetaminophen (Hydrocodone-Acetamin 5-325 mg) 5 Mg-325 Mg Tablet 1 TAB PO Q4H PRN for PAIN-MODERATE (5-7), #6 TAB Prov: CLARE YA 01/06/23 Pantoprazole Sodium (Protonix) 40 Mg Tablet.dr 40 MG PO DAILY, #30 TAB Prov: CLARE YA 01/06/23 Sucralfate (Carafate) 1 Gram Tablet 1 GM PO QID, #60 TAB Prov: CLARE YA 01/06/23 CLARE YA Jan 06, 2023 16:08
[2023-01-06 16:10] LABS: ALKALINE PHOSPHATASE 82 U/L (40-136); CREATININE SERUM 0.95 MG/DL (0.60-1.30); GFR ESTIMATED 110
[2023-01-06 16:11] LABS: BUN/CREATININE RATIO 12
[2023-01-06 16:13] LABS: ALANINE AMINOTRANSFERASE 110 U/L (0-55); LIPASE 34 U/L (8-78)
[2023-01-06 16:18] LABS: INR 0.9 (0.8-1.4); PROTHROMBIN TIME PATIENT 12.5 SEC (12.2-14.7)
[2023-01-06 16:20] LABS: BILIRUBIN,URINE NEGATIVE (NEGATIVE); CLARITY,URINE CLOUDY; COLOR,URINE ORANGE; GLUCOSE, URINE (UA) NEGATIVE (NEGATIVE); KETONES,URINE NEGATIVE (NEGATIVE); LEUKOCYTE ESTERASE ,URINE NEGATIVE (NEGATIVE); NITRITE,URINE NEGATIVE (NEGATIVE); PROTEIN,URINE 1+ (NEGATIVE)
[2023-01-06 16:29] LABS: BACTERIA,URINE MODERATE /HPF; SQUAMOUS EPITHELIAL CELL,UR 0-2 /HPF; WBC,URINE RARE /HPF
[2023-01-06 16:30] LABS: AMORPHOUS SEDIMENT,UR MOD AMOR PHOSPHATE /LPF; RBC,URINE RARE /HPF
[2023-01-06] MEDS ORDERED: HYDROmorphone 2 MG/ML VIAL (DILAUDID) IV ONE (16:45)
[2023-01-06] MEDS ORDERED: ACHD5005 PO (17:12)
[2023-01-06] MEDS ORDERED: PANT40TA2 PO (17:12)
[2023-01-06] MEDS ORDERED: SUCR1TAB36 PO (17:12)
[2023-01-06 17:24] VITALS: BP 138/92
[2023-01-06] MEDS ORDERED: LORA-404 PO (17:58)
== END 2023-01-06 17:25 | disposition home or self-care (01) ==
LOC: EDUNIT# 15:24 → ER 15:27
DX: K92.0 Hematemesis (principal); R10.11 Right upper quadrant pain; R74.8 Abnormal levels of other serum enzymes; F17.210 Nicotine dependence, cigarettes, uncomplicated; Z28.310 Unvaccinated for COVID-19
CPT/HCPCS: 80053; 81000; 83690; 85025; 85610; 85730; 87077; 87088; 99284; G0480; 36415; 80320

== ENCOUNTER 2023-01-26 08:50 | Emergency (ER) | payer SELFPAY ==
[~2023-01-26] VITALS: Ht 175 cm; Wt 96.0 kg
[2023-01-26 08:50] VITALS: BP 126/81
--- NOTE | 2023-01-26 09:02 | ED General ---
General Stated Complaint: ABD PAIN Source of Information: Patient Exam Limitations: No Limitations History of Present Illness Date Seen by Provider: Jan 26, 2023 Time Seen by Provider: 23:42 Initial Comments 32-year-old male presents to the emergency department today for initially what he states is abdominal pain. On arrival he states he feels his legs are swollen secondary to alcoholism. He has had this happen several times in the past. He states initially that he is trying to get detox so he does not get fired from his job. He has an intake appointment in [place] at noon. He does tell me he has been vomiting blood and having dark stools. He states this happens a couple times a month most recently this morning. He has had upper and lower endoscopy and never been told he has varices. He is not on any blood thinning medications. Pain is in his upper abdomen, dull and throbbing. He denies any fevers or chills. He states he drinks 1 to 2 pints of whiskey daily. He has do ne so for several years. He does not know when he last took a drink. All other systems reviewed and negative except documented per HPI. Voice recognition software was used to help create this chart Allergies and Home Medications Allergies Coded Allergies: No Known Drug Allergies (Unverified , 06/23/22) Patient Home Medication List Home Medication List Reviewed: Yes Clonazepam (Klonopin) 0.5 Mg Tablet, 0.5 MG PO BID, (Reported) Entered as Reported by: JORJE BLACKWELL on 08/07/22821 Escitalopram Oxalate (Escitalopram Oxalate) 10 Mg Tablet, 10 MG PO DAILY, (Reported) Entered as Reported by: CORBY KELLEY on 06/24/22 0951 Escitalopram Oxalate (Lexapro) 10 Mg Tablet, 10 MG PO, (Reported) Entered as Reported by: JORJE BLACKWELL on 08/07/22821 Hydrocodone Bit/Acetaminophen (HYDROcodone/APAP 5 MG/325 MG TAB) 1 Tab Tab, 1 TAB PO Q6H Prescribed by: WIN RMAOS on 08/07/22 0904 Hydrocodone/Acetaminophen (Hydrocodone-Acetamin 5-325 mg) 5 Mg-325 Mg Tablet, 1 TAB PO Q4H PRN for PAIN-MODERATE (5-7) Prescribed by: GREGORY OCHOA on 01/06/23 1712 Hyoscyamine Sulfate (Levsin-Sl) 0.125 Mg Tab.subl, 0.125 MG SL Q4H Prescribed by: AKANKSHA MERIDA on 06/25/22 121 Lorazepam (Ativan) 0.5 Mg Tablet, 0.5 MG PO TID PRN for ANXIETY Prescribed by: GREGORY OCHOA on 01/06/23 1759 Multivitamin (Multivitamin) 1 Each Tablet, 1 EACH PO DAILY Prescribed by: VANESSA VALDES on 06/24/22 115 Ondansetron (Ondansetron Odt) 4 Mg Tab.rapdis, 4 MG SL Q8H PRN for NAUSEA/VOMITING Prescribed by: AKANKSHA MERIDA on 10/01/22 1207 Pantoprazole Sodium (Protonix) 40 Mg Tablet.dr, 40 MG PO BID Prescribed by: VANESSA VALDES on 06/24/22 1152 Pantoprazole Sodium (Protonix) 20 Mg Tablet.dr, 20 MG PO BID Prescribed by: AKANKSHA MERIDA on 10/01/22 1207 Pantoprazole Sodium (Protonix) 40 Mg Tablet.dr, 40 MG PO DAILY Prescribed by: GREGORY OCHOA on 01/06/23 171 Sucralfate (Carafate) 1 Gram Tablet, 1 GM PO Q6H Prescribed by: AKANKSHA MERIDA on 06/25/22 1219 Sucralfate (Carafate) 1 Gram Tablet, 1 GM PO QID Prescribed by: GREGORY OCHOA on 01/06/23 171 Thiamine HCl (Vitamin B-1) 100 Mg Tablet, 100 MG PO DAILY Prescribed by: VANESSA VALDES on 06/24/22 115 Review of Systems Review of Systems Constitutional: see HPI Past Gwnztpw-Hfvcwa-Lpanil Hx Patient Social History Tobacco Use?: Yes Use of E-Cig and/or Vaping dev: No Substance use?: No Alcohol Use?: Yes Alcohol type: Hard Liquor Immunizations Up To Date First/Initial COVID19 Vaccinat: NONE Second COVID19 Vaccination James: NONE Third COVID19 Vaccination Date: NONE Past Medical History Surgery/Hospitalization HX: FATTY LIVER DISEASE, ALCOHOLISM RT CALCANEUS SURGERY/SCAPHOID BONE GRAFT/EGD X2 Surgeries: Yes Abdominal, Orthopedic Respiratory: No Cardiac: No Neurological: No Genitourinary: No Gastrointestinal: Yes ("Tear of esophagus") Ulcer Musculoskeletal: Yes (BILAT 5TH METACARPAL FRACTURES-NO SURGERY) Fractures Endocrine: No HEENT: No Cancer: No Psychosocial: Yes Anxiety, Depression Integumentary: No Blood Disorders: No Family Medical History Reviewed Nursing Family Hx No Pertinent Family Hx Physical Exam Vital Signs Vital Signs - First Documented 01/26/23 08:50 Temp 36.3 Pulse 70 Resp 16 B/P (MAP) 126/81 (96) Pulse Ox 98 O2 Delivery Room Air Capillary Refill : Height, Weight, BMI Height: '" Weight: lbs. oz. kg; 31.00 BMI Method: General Appearance: No Apparent Distress, WD/WN HEENT: Normal ENT Inspection, Pharynx Normal Neck: Normal Inspection, Non Tender, Supple Respiratory: Chest Non Tender, Lungs Clear, Normal Breath Sounds, No Accessory Muscle Use, No Respiratory Distress Cardiovascular: Regular Rate, Rhythm, Normal Peripheral Pulses Gastrointestinal: Normal Bowel Sounds, Soft, Tenderness (Mild tenderness in the upper abdomen. No rebound or guarding.) Extremity: Normal Capillary Refill, Normal Inspection, Normal Range of Motion, Non Tender, No Calf Tenderness Neurologic/Psychiatric: Alert, Oriented x3 Skin: Normal Color, Warm/Dry Progress/Results/Core Measures Suspected Sepsis SIRS Temperature: Pulse: Respiratory Rate: Laboratory Tests 01/26/23 09:11: White Blood Count 7.1 Blood Pressure / Mean: Laboratory Tests 01/26/23 09:11: Creatinine 0.86, Platelet Count 309, Total Bilirubin 0.6 Results/Orders Lab Results Laboratory Tests Test 01/26/23 09:11 01/26/23 09:15 01/26/23 09:46 Range/Units White Blood Count 7.1 4.3-11.0 10^3/uL Red Blood Count 5.04 4.30-5.52 10^6/uL Hemoglobin 15.9 13.3-17.7 g/dL Hematocrit 46 40-54 % Mean Corpuscular Volume 91 80-99 fL Mean Corpuscular Hemoglobin 32 25-34 pg Mean Corpuscular Hemoglobin Concent 35 32-36 g/dL Red Cell Distribution Width 13.1 10.0-14.5 % Platelet Count 309 130-400 10^3/uL Mean Platelet Volume 8.8 L 9.0-12.2 fL Immature Granulocyte % (Auto) 0 % Neutrophils (%) (Auto) 67 42-75 % Lymphocytes (%) (Auto) 23 12-44 % Monocytes (%) (Auto) 8 0-12 % Eosinophils (%) (Auto) 1 0-10 % Basophils (%) (Auto) 1 0-10 % Neutrophils # (Auto) 4.7 1.8-7.8 10^3/uL Lymphocytes # (Auto) 1.6 1.0-4.0 10^3/uL Monocytes # (Auto) 0.6 0.0-1.0 10^3/uL Eosinophils # (Auto) 0.1 0.0-0.3 10^3/uL Basophils # (Auto) 0.1 0.0-0.1 10^3/uL Immature Granulocyte # (Auto) 0.0 0.0-0.1 10^3/uL Sodium Level 138 135-145 MMOL/L Potassium Level 3.6 3.6-5.0 MMOL/L Chloride Level 107 98-107 MMOL/L Carbon Dioxide Level 22 21-32 MMOL/L Anion Gap 9 5-14 MMOL/L Blood Urea Nitrogen 9 7-18 MG/DL Creatinine 0.86 0.60-1.30 MG/DL Estimat Glomerular Filtration Rate 119 BUN/Creatinine Ratio 10 Glucose Level 87 70-105 MG/DL Calcium Level 9.4 8.5-10.1 MG/DL Corrected Calcium 9.1 8.5-10.1 MG/DL Total Bilirubin 0.6 0.1-1.0 MG/DL Aspartate Amino Transf (AST/SGOT) 33 5-34 U/L Alanine Aminotransferase (ALT/SGPT) 66 H 0-55 U/L Alkaline Phosphatase 70 40-136 U/L Total Protein 7.1 6.4-8.2 GM/DL Albumin 4.4 3.2-4.5 GM/DL Lipase 24 8-78 U/L Salicylates Level < 5.0 L 5.0-20.0 MG/DL Acetaminophen Level < 10 L 10-30 UG/ML Serum Alcohol < 10 <10 MG/DL Urine Color YELLOW Urine Clarity CLEAR Urine pH 6.0 5-9 Urine Specific [place] 1.010 L 1.016-1.022 Urine Protein NEGATIVE NEGATIVE Urine Glucose (UA) NEGATIVE NEGATIVE Urine Ketones NEGATIVE NEGATIVE Urine Nitrite NEGATIVE NEGATIVE Urine Bilirubin NEGATIVE NEGATIVE Urine Urobilinogen 0.2 < = 1.0 MG/DL Urine Leukocyte Esterase NEGATIVE NEGATIVE Urine RBC (Auto) NEGATIVE NEGATIVE Urine RBC NONE /HPF Urine WBC NONE /HPF Urine Crystals NONE /LPF Urine Bacteria NEGATIVE /HPF Urine Casts NONE /LPF Urine Mucus NEGATIVE /LPF Urine Culture Indicated NO Urine Opiates Screen NEGATIVE NEGATIVE Urine Oxycodone Screen NEGATIVE NEGATIVE Urine Methadone Screen NEGATIVE NEGATIVE Urine Propoxyphene Screen NEGATIVE NEGATIVE Urine Barbiturates Screen NEGATIVE NEGATIVE Ur Tricyclic Antidepressants Screen NEGATIVE NEGATIVE Urine Phencyclidine Screen NEGATIVE NEGATIVE Urine Amphetamines Screen NEGATIVE NEGATIVE Urine Methamphetamines Screen NEGATIVE NEGATIVE Urine Benzodiazepines Screen POSITIVE H NEGATIVE Urine Cocaine Screen NEGATIVE NEGATIVE Urine Cannabinoids Screen POSITIVE H NEGATIVE SARS-CoV-2 RNA (RT-PCR) Not Detected Not Detecte My Orders Orders - PIPER HORVATH DO Ua Culture If Indicated (01/26/23 08:53) Cbc With Automated Diff (01/26/23 08:53) Comprehensive Metabolic Panel (01/26/23 08:53) Alcohol (01/26/23 08:53) Drug Screen Stat (Urine) (01/26/23 08:53) Acetaminophen (01/26/23 08:53) Salicylate (01/26/23 08:53) Ekg Tracing (01/26/23 08:53) Ed Iv/Invasive Line Start (01/26/23 08:53) Monitor-Rhythm Ecg Trace Only (01/26/23 08:53) Bh Status Checks/Observation O Q15M (01/26/23 08:53) Ed Iv/Invasive Line Start (01/26/23 08:53) Lipase (01/26/23 08:53) Ibuprofen Tablet (Motrin Tablet) (01/26/23 09:30) Covid 19 Inhouse Test (01/26/23 09:44) General/Regular (01/26/23 Lunch) Ondansetron Oral Dissolve Tab (Zofran (01/26/23 10:32) Acetaminophen Tablet (Tylenol Tablet) (01/26/23 10:45) Ibuprofen Tablet (Motrin Tablet) (01/26/23 13:08) Medications Given in ED Current Medications Medications Dose Ordered Sig/Hayes Route Start Time Stop Time Status Last Admin Dose Admin Acetaminophen 1,000 mg ONCE ONCE PO 01/26/23 10:45 01/26/23 10:46 DC 01/26/23 10:57 1,000 MG Ibuprofen 600 mg ONCE ONCE PO 01/26/23 09:30 01/26/23 09:31 DC 01/26/23 09:43 600 MG Vital Signs/I&O 01/26/23 08:50 Temp 36.3 Pulse 70 Resp 16 B/P (MAP) 126/81 (96) Pulse Ox 98 O2 Delivery Room Air Capillary Refill : ECG Comment Screening EKG on my interpretation shows sinus rhythm at 54 bpm. Normal intervals. Normal axis. No ST or T wave abnormalities. No ectopy. No STEMI. Departure Communication (Admissions) Upon initial evaluation I advised the patient that we would provide medical clearance and hopefully be able to discharge him to get into his intake appointment in [place] as we did not have detox in our facility. He then immediately states that he is suicidal. This was not part of his initial complaint. He tells me he has been depressed since he was 17 years old and has tried to overdose on pills in the past. We then got him up to move him to the psychiatric room for patient's safety and began collecting his belongings. He then immediately stated he was not suicidal and did not want to give us his phone. He was verbally aggressive towards myself and other staff members but ultimately complies. He is asking for something for pain. I offered him Tylenol or ibuprofen and he declined stating "that is bullshit." Patient continually asking for narcotic pain medications, fentanyl and specific. Advised I was not going to provide him with any narcotic pain medicine and as ibuprofen and Tylenol are appropriate for his pain at this time. He becomes verbally aggressive with staff and angry yelling fuck you and making aggressive hand gestures. I advised him we are happy to take care of him but if he continued to be verbally aggressive to staff that he would have to leave. He immediately asks for his belongings. He is voluntary and at present he denies any suicidal ideation. We called the police to be here as he exited. We provided him with all of the following is a change in the room and police es corted him off the premises. Impression Primary Impression: Alcohol abuse Disposition: AGAINST MEDICAL ADVICE Condition: Against Medical Advice Departure-Patient Inst. Referrals: NO,LOCAL PHYSICIAN (PCP/Family) Primary Care Physician ALEXANDRU,PIPER L DO Jan 26, 2023 09:02
[2023-01-26 09:21] LABS: BASOPHILS # (AUTO) 0.1 10^3/uL (0.0-0.1); BASOPHILS % (AUTO) 1 % (0-10); EOSINOPHILS # (AUTO) 0.1 10^3/uL (0.0-0.3); EOSINOPHILS % (AUTO) 1 % (0-10); HEMATOCRIT 46 % (40-54); HEMOGLOBIN 15.9 g/dL (13.3-17.7); LYMPHOCYTES # (AUTO) 1.6 10^3/uL (1.0-4.0); LYMPHOCYTES % (AUTO) 23 % (12-44); MEAN CORPUSCULAR HEMOGLOBIN 32 pg (25-34); MEAN CORPUSCULAR HGB CONC 35 g/dL (32-36); MEAN CORPUSCULAR VOLUME 91 fL (80-99); MEAN PLATELET VOLUME 8.8 fL (9.0-12.2); MONOCYTES # (AUTO) 0.6 10^3/uL (0.0-1.0); MONOCYTES % (AUTO) 8 % (0-12); NEUTROPHILS # (AUTO) 4.7 10^3/uL (1.8-7.8); NEUTROPHILS % (AUTO) 67 % (42-75); PLATELET COUNT 309 10^3/uL (130-400); WHITE BLOOD COUNT 7.1 10^3/uL (4.3-11.0)
[2023-01-26 09:25] LABS: BILIRUBIN,URINE NEGATIVE (NEGATIVE); CLARITY,URINE CLEAR; COLOR,URINE YELLOW; GLUCOSE, URINE (UA) NEGATIVE (NEGATIVE); KETONES,URINE NEGATIVE (NEGATIVE); LEUKOCYTE ESTERASE ,URINE NEGATIVE (NEGATIVE); NITRITE,URINE NEGATIVE (NEGATIVE); PROTEIN,URINE NEGATIVE (NEGATIVE)
[2023-01-26] MEDS ORDERED: IBUPROFEN 600 MG (MOTRIN) TAB PO ONE ×3 (09:30→13:08)
[2023-01-26 09:31] LABS: ALBUMIN 4.4 GM/DL (3.2-4.5); CHLORIDE 107 MMOL/L (98-107); POTASSIUM 3.6 MMOL/L (3.6-5.0); SODIUM 138 MMOL/L (135-145)
[2023-01-26 09:33] LABS: BACTERIA,URINE NEGATIVE /HPF
[2023-01-26 09:33] LABS: CALCIUM 9.4 MG/DL (8.5-10.1)
[2023-01-26 09:34] LABS: GLUCOSE 87 MG/DL (70-105); TOTAL PROTEIN 7.1 GM/DL (6.4-8.2)
[2023-01-26 09:35] LABS: CARBON DIOXIDE 22 MMOL/L (21-32)
[2023-01-26 09:36] LABS: BILIRUBIN,TOTAL 0.6 MG/DL (0.1-1.0)
[2023-01-26 09:38] LABS: ALKALINE PHOSPHATASE 70 U/L (40-136); CREATININE SERUM 0.86 MG/DL (0.60-1.30); GFR ESTIMATED 119
[2023-01-26 09:39] LABS: ACETAMINOPHEN < 10 UG/ML (10-30); BUN/CREATININE RATIO 10
[2023-01-26 09:39] LABS: BENZODIAZEPINES SCREEN URINE POSITIVE (NEGATIVE)
[2023-01-26 09:40] LABS: AMPHETAMINE SCREEN, URINE NEGATIVE (NEGATIVE); BARBITURATE SCREEN URINE NEGATIVE (NEGATIVE); CANNABINOID SCREEN, URINE POSITIVE (NEGATIVE); COCAINE SCREEN URINE NEGATIVE (NEGATIVE); METHADONE STAT NEGATIVE (NEGATIVE); OPIATE SCREEN URINE NEGATIVE (NEGATIVE); OXYCODONE STAT NEGATIVE (NEGATIVE); PROPOXYPHENE STAT NEGATIVE (NEGATIVE); TRICYCLIC ANTIDEPRESSANTS SCRE NEGATIVE (NEGATIVE)
[2023-01-26 09:41] LABS: ALANINE AMINOTRANSFERASE 66 U/L (0-55); LIPASE 24 U/L (8-78); SALICYLATE < 5.0 MG/DL (5.0-20.0)
[2023-01-26] MEDS ORDERED: ONDANSETRON 4 MG (ZOFRAN) ORAL DISSOLVE TAB PO STA (10:32)
[2023-01-26] MEDS ORDERED: ACETAMINOPHEN 500 MG TAB (TYLENOL) PO ONE (10:45)
== END 2023-01-26 13:46 | disposition left against medical advice (07) ==
LOC: EDUNIT# 08:50 → ER 08:51
DX: F10.20 Alcohol dependence, uncomplicated (principal); R10.10 Upper abdominal pain, unspecified; Y90.0 Blood alcohol level of less than 20 mg/100 ml; Z28.310 Unvaccinated for COVID-19; Z20.822 Contact with and (suspected) exposure to COVID-19
CPT/HCPCS: 80053; 80306; 81000; 83690; 85025; 87636; 93005; 99284; G0480 ×3; 36415; 80320; 80329